=== PATIENT | male | born 1950 | race Caucasian/White ===

== ENCOUNTER 2023-08-08 10:57 | Outpatient (CLI) | payer MEDICARE, SELFPAY ==
[2023-08-08 18:24] LABS: Hematocrit 51.2 % (42.0-52.0); Hemoglobin 16.6 g/dL (14.0-18.0); Mean Corpuscular HGB Conc 32.4 g/dl (32-36); Mean Corpuscular Hemoglobin 31.9 pg (26-34); Mean Corpuscular Volume 98.3 fl (80-100); Mean Platelet Volume 10.8 fl (7.4-10.4); Platelet Count Result 246 k/mm3 (150-375); Red Blood Count 5.21 M/mm3 (4.6-6.20); Red Cell Distribution Width 13.4 % (11.5-14.5); White Blood Count 10.2 K/mm3 (4.5-10.0)
[2023-08-08 18:39] LABS: Hemoglobin A1C 7.1 % (<5.7)
[2023-08-08 18:51] LABS: Alanine Aminotransferase 25 U/L (6-50); Albumin Level 4.9 g/dL (3.5-5.1); Alkaline Phosphatase 69 U/L (38-126); Anion Gap 10 mmol/L (4-12); Aspartate Amino Transferase 85 U/L (17-59); Blood Urea Nitrogen 19 mg/dL (9-20); Calcium 10.1 mg/dL (8.4-10.2); Carbon Dioxide 30 mmol/L (22-30); Chloride 98 mmol/L (98-107); Cholesterol 178 mg/dL (0-200); Estimated Glomerular Filt Rate > 60; Glucose 125 mg/dL (65-110); HDL Direct 47 mg/dL; Potassium 4.3 mmol/L (3.4-5.0); Sodium 138 mmol/L (137-145); Triglycerides 198 mg/dL (<150)
[2023-08-08 19:02] LABS: LDL Cholesterol Direct 92 mg/dL
[2023-08-08 19:21] LABS: Prostate Specific Antigen 1.1 ng/mL (< OR = 4.0)
[2023-08-08 19:37] LABS: Creatinine Urine 55.6 mg/dL
[2023-08-08 19:40] LABS: MALB Creatinine Ratio 41.4 mg/g (0-30)
== END 2023-08-08 10:58 | disposition home or self-care (01) ==
PROVIDERS: PCP Nurse Practitioner Adult Health; Visit Provider Nurse Practitioner Adult Health
DX: E07.9 Disorder of thyroid, unspecified (principal); Z12.5 Encounter for screening for malignant neoplasm of prostate; E11.9 Type 2 diabetes mellitus without complications
CPT/HCPCS: 36415; 80053; 80061; 82043; 82565; 83036; 84153; 84443; 85027; G0103

== ENCOUNTER 2023-09-29 11:23 | Outpatient (CLI) | payer MEDICARE, SELFPAY ==
--- NOTE | ~2023-09-29 | XR_ITS ---
EXAMINATION: XR lumbar spine 2-3V DATE: 09/29/2023 11:37 INDICATION: Low back pain post fall TECHNIQUE: Anteroposterior and lateral views of the lumbar spine, and cone-down lateral view of the l umbosacral junction were obtained. COMPARISON: None. FINDINGS: Line 25 degree lumbar dextroscoliosis. 3 mm anterolisthesis L4 on L5. Vertebral body height s are normal. Moderate disc height loss at T12-L1 through L4-L5, with right-sided predominance at L2- L3 and L3-L4. Mild disc height loss at L5-S1. There are bridging osteophytes at multiple levels consi stent with diffuse idiopathic skeletal hyperostosis (DISH). Posterior endplate osteophytes at and L2- L3 and L3-L4 likely contribute to central canal stenosis. The central canal also appears developmenta lly small at L4 and L5. There is severe left and lower lumbar predominant facet osteoarthritis. Mild osteoarthritis at the bilateral sacroiliac joints. IMPRESSION: 1. 25 degrees lumbar dextroscoliosis with moderate spondylosis. Reviewed, dictated and finalized at location A.
== END 2023-09-29 11:24 | disposition home or self-care (01) ==
PROVIDERS: PCP Nurse Practitioner Adult Health; Visit Provider Nurse Practitioner Adult Health
DX: M54.50 Low back pain, unspecified (principal); W19.XXXA Unspecified fall, initial encounter; M47.896 Other spondylosis, lumbar region
CPT/HCPCS: 72100

== ENCOUNTER 2024-01-05 11:12 | Outpatient (CLI) | payer MEDICARE, SELFPAY ==
--- NOTE | ~2024-01-05 | XR_ITS ---
XR abdomen/kub 1V 01/05/2024 11:27 INDICATION: Constipation TECHNIQUE: KUB COMPARISON: None FINDINGS: Bowel gas pattern is normal. Moderate colonic fecal loading. There is no evidence of free a ir, mass, organomegaly, ascites or obstruction. No abnormal calculi are seen. The bones appear inta ct. There is severe lumbar spondylosis with scoliosis. IMPRESSION: 1: No acute abdominal abnormality identified. Reviewed, dictated and finalized at location B.
== END 2024-01-05 11:13 | disposition home or self-care (01) ==
PROVIDERS: PCP Nurse Practitioner Adult Health; Visit Provider Nurse Practitioner Adult Health
DX: K59.00 Constipation, unspecified (principal)
CPT/HCPCS: 74018

== ENCOUNTER 2024-08-09 09:07 | Outpatient (CLI) | payer MEDICARE, SELFPAY ==
--- OUTSIDE RECORDS SUMMARY | 2024-08-09 09:26 | XMS_ITS | Clinical Summary ---
Author Organization [facility] Address [address] [address] Phone Care Team Providers Care Minibus Driver Name Role Phone Silverio Natalie Iraida FLETCHER Primary Care Provider [phone] Allergies No known active allergies Medications montelukast (SINGULAIR) 10 MG Tablet Take 10 mg by mouth daily. Active losartan (COZAAR) 100 MG Tablet Take 100 mg by mouth daily. Active minocycline (MINOCIN, DYNACIN) 50 MG Capsule Take 50 mg by mouth daily. Active digoxin (LANOXIN) 250 MCG Tablet Take 0.25 mg by mouth daily. Active hydroCHLOROthia zide 25 MG Tablet Take 25 mg by mouth daily. Active levothyroxine (SYNTHROID) 100 MCG Tablet Take 100 mcg by mouth daily. Active tamsulosin (FLOMAX) 0.4 MG Capsule Take 0.4 mg by mouth daily. Active metFORMIN (GLUCOPHAGE) 500 MG Tablet Take 500 mg by mouth daily. Active finasteride (PROSCAR) 5 MG Tablet Take 5 mg by mouth daily. Active rivaroxaban (XARELTO) 20 MG Tablet Take 20 mg by mouth daily. Take with food. Active polyethylene glycol (MiraLax) 17 GM/SCOOP Powder Take 17 g by mouth daily. 17 g = 1 scoop. Dissolve in 4 -8 oz of water or other liquid. 225 g 10/04/2023 Active Family History Medical History Relation Name Comments Cancer Father throat, prostat e Relation Name Status Comments Father Mother Social History Tobacco Use Types Packs/Day Years Used Date Smoking Tobacco: Never Smokeless Tobacco: Never Alcohol Use Standard Drinks/Week Comments Yes 0 (1 standard drink = 0.6 oz pur e alcohol) occassional Sex and Gender Information Value Date Recorded Sex Assigned at Not on file Legal Sex Male 10:27 PM CDT Gender Identity Not on file Sexual Orientation Not on file Last Filed Vital Signs Vital Sign Reading Time Taken Comments Blood Pressure 155/95 10/04/2023 9:27 AM CDT Pulse 92 10/04/2023 9:27 AM CDT Temperature 36.5 C (97.7 F) 10/04/2023 9:27 AM CDT Respiratory Rate 18 10/04/2023 9:27 AM CDT Oxygen Saturation 100% 10/04/2023 9:27 AM CDT Inhaled Oxygen Concentration - - Weight 104.3 kg (230 lb) 10/04/2023 9:27 AM CDT Height 180.3 cm (5' 11 ) 10/04/2023 9:27 AM CDT Body Mass Index 32.08 10/04/2023 9:27 AM CDT Plan of Treatment Health Maintenance Due Date Last Done Comments Hepatitis C Virus (HCV) Screening 1950 TdaP Immunization 1950 Cologuard 2000 Immunochemical Fecal Occult Blood 2000 Pneumococcal Immunization (50+ years) (2 of 2 - PPSV23) 09/28/2019 09/27/2018 Influenza Immunization (#1) 2023 0805/2022, 02/23/2022, 01/27/2021, Additional history exists SARS-COV-2 Immunization ( season) 2023 07/30/2020, 07/04/2020 Colonoscopy 04/24/2024 04/24/2019 Colorectal Cancer Screening 04/24/2024 Respiratory Syncytial Virus (RSV) Immunization (Adult) (1 - 1-dose 75+ series) 2025 04/24/2019 Pneumococcal Immunization Combined Discontinued 09/27/2018 Zoster Immunization Completed 04/07/2020, 0 Hepatitis B Immunization Aged Out No longer eligible based on patient's age to complete this topic Meningococcal Immunization (ACWY) Aged Out No longer eligible based on patient's age to complete this topic Rotavirus Immunization Aged Out No lo nger eligible based on patient's age to complete this topic Insurance MEDICARE C AETNA Care Teams Minibus Driver Relationship Specialty Start Date End Date Natalie Sawyer APRN PCP - General Advanced Practice Nurse 10/04/23
--- OUTSIDE RECORDS SUMMARY | 2024-08-09 09:27 | XMS_ITS | Clinical Summary ---
Author Organization [facility] Address [address] [place] [id number] Care Team Providers Care Sanitation Director Name Role Phone German Shaffer MD Unavailable [phone] Abdon Copeland MD Primary Care Provider [phone] Allergies No known active allergies Medications tamsulosin 0.4 MG Cap Take 1 capsule (0.4 mg total) by mouth daily. Active montelukast 10 MG tablet Take 1 tablet (10 mg total) by mouth nightly at bedtime. Active minocycline 50 MG capsule Take 1 capsule (50 mg total) by mouth daily. Active finasteride 5 MG tablet Take 1 tablet (5 mg total) by mouth daily. Active levothyroxine 100 MCG tablet 1 tablet (100 mcg total) every morning. 10/31/2017 Active icosapent ethyl 1 G capsule Take 1 capsule (1 g total) by mouth 2 (two) times daily. Take with food. Active digoxin (LANOXIN) 0.25 MG tablet TAKE 1 TABLET DAILY 90 tablet 3 11/02/2021 Active JARDIANCE 25 MG tablet Take 1 tablet (25 mg total) by mouth daily. 11/30/2021 Active metFORMIN ER (GLUCOPHAGE-XR) 500 MG 24 hr tablet Take 1 tablet (500 mg total) by mouth 2 (two) times a day. 11/30/2021 Active XARELTO 20 MG Tab tablet TAKE 1 TABLET DAILY WITH SUPPER. TAKE WITH FOOD 90 tablet 3 12/31/2022 Active losartan (COZAAR) 100 MG tablet Take 1 tablet (100 mg total) by mouth daily. 90 tablet 2 12/07/2023 Active hydroCHLOROthia zide (HYDRODIURIL) 25 MG tablet Take 1 tablet (25 mg total) by mouth every morning. 90 tablet 2 12/07/2023 Active Active Problems Problem Noted Date Diagnosed Date LVH (left ventricular hypertrophy) Hypertension Atrial fibrillation (CMS/HCC HHS/HCC) Immunizations Immunization Administration Dates Next Due Fluzone High Dose - >Age 65 (Prefilled Syringe) 01/29/2020,03/15/2019 Pneumococcal (Prevnar 13) 09/27/2018 Shingrix 04/07/2020,01/29/2020 Family History Medical History Relation Comments Diabetes Father Relation Status Comments Father Alive Mother Social History Tobacco Use Types Packs/Day Years Used Date Smoking Tobacco: Never Smokeless Tobacco: Never Alcohol Use Standard Drinks/Week Comments Yes 0 (1 standard drink = 0.6 oz pur e alcohol) social Sex and Gender Information Value Date Recorded Sex Assigned at Not on file Legal Sex Male 9:19 AM CDT Gender Identity Not on file Sexual Orientation Not on file Last Filed Vital Signs Vital Sign Reading Time Taken Comments Blood Pressure 118/76 04/21/2023 9:38 AM GREEN TIRE INSPECTOR Pulse 83 04/21/2023 9:38 AM GREEN TIRE INSPECTOR Temperature - - Respiratory Rate 18 12/04/2018 10:32 AM CDT Oxygen Saturation 98% 04/21/2023 9:38 AM GREEN TIRE INSPECTOR Inhaled Oxygen Concentration - - Weight 112 kg (247 lb) 04/21/2023 9:38 AM GREEN TIRE INSPECTOR Height 180.3 cm (5' 11 ) 04/21/2023 9:38 AM GREEN TIRE INSPECTOR Body Mass Index 34.45 04/21/2023 9:38 AM GREEN TIRE INSPECTOR Plan of Treatment Health Maintenance Due Date Last Done Comments Hepatitis C 1968 DTaP, Tdap and Td Vaccines ( 1 - Tdap) 1969 AAA SCREENING 09/18/2015 Annual Medicare Wellness Visit 09/18/2015 Pneumococcal Vaccine: 50+ Years (2 of 2 - PPSV23) 09/28/2019 09/27/2018 COVID-19 Vaccine (3 - 2023-2 5 season) 2023 07/30/2020, 07/04/2020 RSV Immunization or 60+ Years (1 - 1-dose 75+ series) 2025 Colorectal Cancer Screening Colonoscopy (10 Years) 12/02/2026 Postponed from (Patient will follow up with PCP) Zoster Vaccines Completed 04/07/2020, 01/29/2020 Meningococcal B Vaccine Aged Out No l onger eligible based on patient's age to complete this topic Meningococcal Vaccine Aged Out No juliano mela eligible based on patient's age to complete this topic RSV Immunizations Under 20 Months Aged Out No longer eligible b ased on patient's age to complete this topic Insurance AETNA Care Teams Sanitation Director Relationship Specialty Start Date End Date Abdon Copeland MD [address] [place] [address] PCP - General FAMILY PRACTICE 12/06/16 German Shaffer MD Line [place] Asset Protection Associate CARDIOVASCULAR DISEASE 11/18/16
--- OUTSIDE RECORDS SUMMARY | 2024-08-09 09:27 | XMS_ITS | Encounter Summary ---
Author Organization [facility] Address [address] [place] [id number] Care Team Providers Care Nutrition And Dietetics Instructor Name Role Phone Herlinda Zayas MD Unavailable [phone] German Shaffer MD Unavailable [phone] Non-Staff, Provider Primary Care Provider Abdon Rivera MD Primary Care Provider [phone] Encounter Details Date Type Department Care Team (Late st Contact Info) Description 11/17/[address] [facility] Conversion [address] [place], [place] [id number] , Generic Conversion, Social History Tobacco Use Types Packs/Day Years Used Date Smoking Tobacco: Never Sex and Gender Information Value Date Recorded Sex Assigned at Not on file Legal Sex Male 9:19 AM CDT Gender Identity Not on file Sexual Orientation Not on file documented as of this encounter Plan of Treatment Not on file documented as of this encounter Visit Diagnoses Not on filedocumented in this encounter Care Teams Nutrition And Dietetics Instructor Relationship Specialty Start Date End Date Non-Staff, Provider PCP - General 12/02/16 12/05/16 Abdon Copeland MD [address] [address] PCP - General FAMILY PRACTICE 12/06/16 Herlinda Zayas MD CARDIOVASCULAR DISEASE 11/16/16 11/17/16 German Shaffer MD [place] Manager Production CARDIOVASCULAR DISEASE 11/18/16 documented as of this encounter
--- OUTSIDE RECORDS SUMMARY | 2024-08-09 09:27 | XMS_ITS | CONTINUITY OF CARE DOCUMENT ---
Author Name kade berrybola Address Unknown Organization [facility] Address [address] [place] [address] Phone [phone] Care Team Providers [facility] Orderly Name Role Phone Juan DIAZ, Jose Dorman Unavailable [phone] NALLELY DIAZ, OLIVIA Unavailable NALLELY DIAZ, OLIVIA Unavailable PROBLEMS Condition Status Date Provider Notes HYPERTENSION, ESSENTIAL active Jose Martinez MD ABNORMAL ELECTROCARDIOGRAM- RT STRESS NEG completed - Collin Krueger MD ATRIAL FIBRILLATION active Jose Martinez MD COPD;BY PETROS 09 ,WILL REPEAT completed 20 02/16/12 - Jose Martinez MD Obstructive sleep apnea active Jose Martinez MD OBESITY active Jose Martinez MD LVH active Jsoe Martinez MD Edema active Jose Martinez MD Current long-term use of Amiodarone active Jose Martinez MD Current use of anticoagulants active Jose Martinez MD Hypothyroidism active Jose Martinez MD Dizziness active Jose Martinez MD ENCOUNTERS Date Type Provider Location Encounter Diag nosis - In-person encounter Office Visit Jose Martinez MD [facility] HYPERTENSION, ESSENTIALATRIAL FIBRILLATIONCOPD;BY PETROS 09 ,WILL REPEATObstructive sleep apneaOBESITYLVHCurrent long-term use of AmiodaroneCurrent use of anticoagulantsHypothyroidismDizziness - In-person encounter Office Visit Jose Martinez MD [facility] EdemaCurrent long-term use of Amiodarone - In-person encounter Office Visit Jose Martinez MD [facility] - In-person encounter Office Visit Jose Martinez MD [facility] - In-person encounter Office Visit Jose Martinez MD [facility] - In-person encounter Office Visit Jose Martinez MD [facility] - In-person encounter Office Visit Jose Martinez MD [facility] - In-person encounter Office Visit Jose Martinez MD [facility] - In-person encounter Office Visit Collin Krueger MD [facility] HYPERTENSION, ESSENTIALABNORMAL ELECTROCARDIOGRAM-09/17 RT STRESS NEGATRIAL FIBRILLATIONObstructive sleep apneaOBESITYLVHEdema - In-person encounter Office Visit Jose Martinez MD [facility] - In-person encounter Office Visit Jose Martinez MD [facility] - In-person encounter Office Visit Jose Martinez MD [facility] - In-person encounter Office Visit Jose Martinez MD [facility] - In-person encounter Office Visit Jose Martinez MD [facility] - In-person encounter Office Visit Jose Martinez MD [facility] HYPERTENSION, ESSENTIALABNORMAL ELECTROCARDIOGRAM-09/17 RT STRESS NEGATRIAL FIBRILLATIONCOPD;BY PETROS ,WILL REPEAT VITAL SIGNS Date Observation Value Provider Body Mass Index (Ratio) 37.02 kg/m2 Florian Ricardo blood pressure, resting Yes Jose Martinez MD pulse rate 86 /min Hilaria Martínez oxygen saturation, oximetry 97 % Hilaria Martínez blood pressure, cuff size large Jerzy Martínez weight E&M 273 [lb_av] Hilaria Martínez height E&M 72 [in_i] Hilaria Martínez blood pressure, diastolic 76 mm[Hg] Jerzy Martínez blood pressure, systolic 127 mm[Hg] Ishan Martínez blood pressure, diastolic 80 mm[Hg] Swetha Ponce blood pressure, systolic 110 mm[Hg] Rocío Ponce pulse rate 122 /min Alexis perez oxygen saturation, oximetry 97 % Alexis Ponce respiratory rate E&M 18 /min Justa Ponce Body Mass Index (Ratio) 36.42 kg/m2 MeaganBarbara Ponce weight E&M 268.6 [lb_av] Alexis Igor radha Body Mass Index (Ratio) 37.02 kg/m2 Tammy rangel Kenneth blood pressure, diastolic, left arm 82 mm [Hg] Alysia Cooper blood pressure, systolic, left arm 129 mm [Hg] Alysia Cooper blood pressure, diastolic, right arm 71 m m[Hg] Alysia Cooper blood pressure, systolic, right arm 115 m m[Hg] Alysia Cooper blood pressure, diastolic 71 mm[Hg] Va steve Kenneth blood pressure, systolic 115 mm[Hg] Olga brayan Cooper pulse rate 75 /min Alysia Cooper oxygen saturation, oximetry 96 % Alysia Cooper respiratory rate E&M 18 /min Alysia Cooper weight E&M 273 [lb_av] Alysia Cooper blood pressure, diastolic 68 mm[Hg] Swetha Ponce blood pressure, systolic 106 mm[Hg] Rocío Ponce Body Mass Index (Ratio) 37.62 kg/m2 MeaganBarbara Ponce pulse rate 93 /min Alexis perez oxygen saturation, oximetry 97 % Alexis Ponce respiratory rate E&M 18 /min Justa Ponce weight E&M 277.4 [lb_av] Alexis garcia Body Mass Index (Ratio) 37.43 kg/m2 Stacya flori [facility] blood pressure, diastolic, left arm 84 mm [Hg] Aneatris Brown blood pressure, systolic, left arm 136 mm [Hg] Aneatris Brown blood pressure, diastolic, right arm 95 m m[Hg] Aneatris Brown blood pressure, systolic, right arm 143 m m[Hg] Aneatris [facility] blood pressure, diastolic 95 mm[Hg] An eatris [facility] blood pressure, systolic 143 mm[Hg] Ane atris [facility] pulse rate 85 /min Aneatris [facility] oxygen saturation, oximetry 98 % Aneatris [facility] respiratory rate E&M 17 /min Aneatri s [facility] weight E&M 276 [lb_av] Aneatris Alcides pulse rate 10 67 /min Antonio Garcia RN blood pressure, diastolic, baseline 72 mm [Hg] Antonio Garcia RN blood pressure, systolic, baseline 114 mm [Hg] Antonio Garcia RN height E&M 72 [in_i] Antonio Garcia RN height in centimeters E&M 182.88 cm Saturnino Garcia RN Body Mass Index (Ratio) 38.66 kg/m2 Bustamante i Jose A blood pressure, diastolic 100 mm[Hg] Ke rri Jose A blood pressure, systolic 164 mm[Hg] Julieta Naranjo pulse rate 79 /min Kaylin bell oxygen saturation, oximetry 97 % Kaylin Naranjo respiratory rate E&M 15 /min Kaylin thompson weight E&M 284 [lb_av] Kaylin Hatch lder height E&M 72 [in_i] Kaylin Holden er blood pressure, diastolic, left arm 80 mm [Hg] [facility] blood pressure, systolic, left arm 132 mm [Hg] [facility], [facility], right arm 88 m m[Hg] [facility] blood pressure, systolic, right arm 138 m m[Hg] [facility], diastolic 88 mm[Hg] Fifi seph [place] blood pressure, systolic 138 mm[Hg] [facility] pulse [facility] 72 /min [facility] oxygen saturation, oximetry 97 % [facility] respiratory rate E&M 16 /min [facility] weight E&M 271 [lb_av] [facility] blood pressure, diastolic 99 mm[Hg] Aguilera blood pressure, systolic 153 mm[Hg] Jesu travis Julian pulse rate 73 /min [facility] saturation, oximetry 96 % Jericho Julian respiratory rate E&M 16 /min Jericho Julian weight E&M 271 [lb_av] Jericho Julian blood pressure, diastolic, left arm 83 mm [Hg] Adry Menchaca [place] blood pressure, systolic, left arm 127 mm [Hg] Adry Menchaca [place] blood pressure, diastolic, right arm 89 m m[Hg] Adry Menchaca [place] blood pressure, systolic, right arm 142 m m[Hg] Adry Menchaca MA oxygen saturation, oximetry 96 % Adry Menchaca MA blood pressure, diastolic 89 mm[Hg] Judy Menchaca MA blood pressure, systolic 142 mm[Hg] Vadim Menchaca MA pulse rate 87 /min Adry Menchaca MA respiratory rate E&M 20 /min Adry Menchaca [place] weight E&M 279 [lb_av] Adrycm Menchaca [place] blood pressure, diastolic, left arm 90 mm [Hg] [facility] blood pressure, systolic, left arm 124 mm [Hg] [facility] blood pressure, diastolic, right arm 82 m m[Hg] [facility] blood pressure, systolic, right arm 128 m m[Hg] [facility] blood pressure, diastolic 82 mm[Hg] Fifi seph [place] blood pressure, systolic 128 mm[Hg] Jean Carlos eph [facility] pulse rate 102 /min [facility] oxygen saturation, oximetry 98 % [facility] respiratory rate E&M 16 /min [facility] weight E&M 269 [lb_av] [facility] blood pressure, diastolic, left arm 81 mm [Hg] Myranda York blood pressure, systolic, left arm 115 mm [Hg] Myranda blood pressure, diastolic, right arm 65 m m[Hg] Myranda blood pressure, systolic, right arm 120 m m[Hg] Myranda blood pressure, diastolic 65 mm[Hg] Corbin Gasca blood pressure, systolic 120 mm[Hg] [facility] pulse rate 58 /min Myranda oxygen saturation, oximetry 98 % Myranda respiratory rate E&M 16 /min Myranda Y orirving weight E&M 258 [lb_av] Myranda blood pressure, diastolic, left arm 79 mm [Hg] Myranda blood pressure, systolic, left arm 117 mm [Hg] Myranda blood pressure, diastolic, right arm 82 m m[Hg] Myranda blood pressure, systolic, right arm 128 m m[Hg] Myranda York blood pressure, diastolic 79 mm[Hg] Corbin Gasca blood pressure, systolic 117 mm[Hg] Pat sy York pulse rate 95 /min Myranda York oxygen saturation, oximetry 98 % Myranda York respiratory rate E&M 17 /min Myranda Y maricruz weight E&M 264 [lb_av] Myranda York blood pressure, diastolic, left arm 90 mm [Hg] Adry Menchaca MA blood pressure, systolic, left arm 131 mm [Hg] Adry Menchaca MA blood pressure, diastolic, right arm 99 m m[Hg] Adry Menchaca MA blood pressure, systolic, right arm 147 m m[Hg] Adry Menchaca MA oxygen saturation, oximetry 97 % Adry Menchaca MA blood pressure, diastolic 99 mm[Hg] Judy Menchaca MA blood pressure, systolic 147 mm[Hg] Vadim Menchaca MA pulse rate 96 /min Adry Menchaca MA respiratory rate E&M 18 /min Adry Menchaca MA weight E&M 260 [lb_av] Adry Menchaca MA blood pressure, diastolic, left arm 82 mm [Hg] Adry Menchaca MA blood pressure, systolic, left arm 131 mm [Hg] Adry Menchaca MA blood pressure, diastolic, right arm 73 m m[Hg] Adry Menchaca MA blood pressure, systolic, right arm 117 m m[Hg] Adry Menchaca MA oxygen saturation, oximetry 96 % Adry Menchaca MA blood pressure, diastolic 82 mm[Hg] Judy Menchaca MA blood pressure, systolic 131 mm[Hg] Vadim Menchaca MA pulse rate 68 /min Adry Menchaca MA respiratory rate E&M 18 /min Adry Menchaca MA weight E&M 261 [lb_av] Adry Menchaca MA blood pressure, diastolic, left arm 88 mm [Hg] Kristian Lucas blood pressure, systolic, left arm 113 mm [Hg] [facility] blood pressure, diastolic, right arm 88 m m[Hg] [facility] blood pressure, systolic, right arm 115 m m[Hg] [facility] blood pressure, diastolic 88 mm[Hg] Fifi seph [facility] blood pressure, systolic 115 mm[Hg] Jean Carlos [facility] pulse rate 91 /min [facility] oxygen saturation, oximetry 98 % [facility] respiratory rate E&M 16 /min [facility] weight E&M 260 [lb_av] [facility] ALLERGIES No Known Drug Allergies RESULTS Date Observation Value Provider Reference Range Interpretation Location thyroid stimulating hormone, serum 6.060 ??IU/ML [facility] 0.270 - 4.200 High thyroid stimulating hormone, serum 14.59 u[IU]/mL [facility] 0.270-4.20 High thyroxine, serum, free 0.86 ng/dL [facility] 0.93-1.7 Low albumin/globulin ratio, serum 1.2 ratio [facility] 1.0-2.6 Normal globulin, serum 3.4 [facility] 1.6-4.0 Normal protein, total, serum 7.6 g/dL [facility] 6.6-8.7 Normal bilirubin, serum, direct 0.1 mg/dL [facility] 0.0-0.3 Normal bilirubin, serum, total 0.4 mg/dL [facility] 0-1.2 Normal alanine aminotransferase (SGPT), serum 33 1/L [facility] 0-41 Normal aspartate aminotransferase (SGOT), serum 24 1/L [facility] 0-40 Normal alkaline phosphatase, serum 83 1/L [facility] 40-129 Normal albumin, serum 4.2 g/dL [facility] 3.97-4.94 Normal international normalized ratio (INR) 7.0 [facility] prothrombin time (patient) 69.[address] [facility] magnesium, serum 2.0 mg/dL [facility] prothrombin time (patient) 36.8 s [facility] international normalized ratio (INR) 3.7 [facility] anion gap, serum 9.8 [facility] estimated glomerular filtration rate >60 [facility] calcium, serum 8.9 mg/dL [facility] blood glucose, fasting 119 mg/dL [facility] creatinine, serum 0.94 mg/dL [facility] urea nitrogen, blood 13.0 mg/dL [facility] carbon dioxide, serum, total 29 mmol/L [facility] chloride, serum 103 mmol/L [facility] potassium, serum 3.8 mmol/L [facility] sodium, serum 138 mmol/L [facility] platelet count 222 10*3/uL [facility] red blood cell distribution width 13.7 % [facility] mean corpuscular hemoglobin concentration, RBC 33.4 g/dL [facility] mean corpuscular hemoglobin, RBC 31.6 pg [facility] mean corpuscular volume, RBC 94.7 fL [facility] hematocrit, blood 44.3 % [facility] hemoglobin, blood 14.8 g/dL [facility] erythrocyte (RBC) count 4.68 10*6/mm3 [facility] monocytes as percent of blood leukocytes 12.9 % [facility] lymphocytes as percent of blood leukocytes 21.8 % [facility] leukocyte count, blood 11.9 10*3/mm3 Artie Fuentes coagulation managed by Antonio Gacria RN international normalized ratio (INR) 4.3 Jericho Julian prothrombin time (patient) 43.1 s Denyean Julian coagulation managed by Antonio Garcia RN international normalized ratio (INR) 3.3 Tami O'Molina prothrombin time (patient) 33.1 s Tami O'Molina coagulation managed by Antonio Garcia RN international normalized ratio (INR) 3.6 Tami O'Molina prothrombin time (patient) 36.2 s Tami O'Molina coagulation managed by Antonio Garcia RN international normalized ratio (INR) 3.1 Antonio Garcia RN prothrombin time (patient) 30.5 s Antonio Garcia RN international normalized ratio (INR) 5.0 Pete Culamak prothrombin time (patient) 49.5 s Pete Wesleyamak international normalized ratio (INR) 3.0 Tami O'Molina prothrombin time (patient) 30.0 s Tami O'Molina international normalized ratio (INR) 2.3 Tami O'Molina prothrombin time (patient) 23.2 s Tami O'Molina coagulation managed by Antonio Garcia RN international normalized ratio (INR) 2.8 Tami O'Molina prothrombin time (patient) 28.1 s Tami O'Molina coagulation managed by Antonio Garcia RN international normalized ratio (INR) 2.5 Tami O'Molina prothrombin time (patient) 25.0 s Tami O'Molina coagulation managed by Antonio Garcia RN international normalized ratio (INR) 3.7 Antonio Garcia RN prothrombin time (patient) 36.5 s Antonio Garcia RN coagulation managed by Antonio Garcia RN international normalized ratio (INR) 2.2 Tami O'Molina prothrombin time (patient) 22.1 s Tami O'Molina coagulation managed by Antonio Garcia RN international normalized ratio (INR) 1.8 Tami O'Molina prothrombin time (patient) 17.9 s Tami O'Molina coagulation managed by Antonio Garcia RN international normalized ratio (INR) 2.5 Myranda York prothrombin time (patient) 24.5 s Myranda York coagulation managed by Antonio Garcia RN international normalized ratio (INR) 3.3 Melissa Weir prothrombin time (patient) 32.9 s Melissa Destin international normalized ratio (INR) 1.6 Kristian Manacoadolfo prothrombin time (patient) 15.9 s Kristian Manacoadolfo international normalized ratio (INR) 1.4 Niya Weldon prothrombin time (patient) 14.1 s Niya Weldon international normalized ratio (INR) 1.4 Melissa Destin prothrombin time (patient) 13.7 s Melissa Destin coagulation managed by Deedee Villalobos RN international normalized ratio (INR) 1.5 Niya Weldon prothrombin time (patient) 14.8 s Niya Weldon international normalized ratio (INR) 4.3 Sandra Stout prothrombin time (patient) 43.4 s Sandra Conyers international normalized ratio (INR) 4.8 Kristian Manacop prothrombin time (patient) 48.2 s Kristian Manacop international normalized ratio (INR) 2.7 Adry Menchaca MA prothrombin time (patient) 27.3 s Adry Menchaca MA prostate specific antigen 5.96 ng/mL Kristel [facility] HISTORY OF MEDICATION USE Medication Status Instructions Dates Provider Indications Com ments TAMSULOSIN HCL 0.4 MG ORAL CAPSULE active 1 cap daily Hilaria Martínez LEVITRA 10 MG ORAL TABLET active as needed Hilaria Martínez AMIODARONE HCL 200 MG ORAL TABLET active ONE TAB. DAILY Jose Martinez MD LEVOTHYROXINE SODIUM 25 MCG ORAL TABLET active once daily Alysia Kenneth XARELTO 20 MG ORAL TABLET active One tab. daily with evening meal Jose Martinez MD LISINOPRIL 20 MG ORAL TABLET completed 1 tab by mouth daily(replaces bystolic) - Jose Martinez MD BYSTOLIC 10 MG ORAL TABLET completed ONE TAB. DAILY - Pete Mendezirving VIAGRA 50 MG ORAL TABLET completed one to two tabs as needed - Alexis Ponce COZAAR 100 MG ORAL TABLET active ONE TAB. DAILY Collin Krueger MD ASPIRIN 81 MG ORAL TABLET completed ONE TAB. DAILY - Alexis Ponce AMIODARONE HCL 200 MG ORAL TABLET completed one tab daily - Alexis Ponce COUMADIN 5 MG ORAL TABLET completed Take 1 tab by mouth every other day - Antonio Garcia RN COUMADIN 5 MG ORAL TABLET completed daily - Collin Krueger MD WARFARIN SODIUM 1 MG ORAL TABLET completed 1/2 tab daily w/1/2 tab of your 5mg tab to equal 3mg daily dose - Chelsea Cuenca RN COUMADIN 5 MG ORAL TABLET completed 1/2 tab daily (3mg daily dose) - Chelsea Cuenca RN PROSCAR 5 MG ORAL TABLET active daily Antonio Garcia RN HYDROCHLOROTHIAZIDE 25 MG ORAL TABLET active ONE TAB DAILY Antonio Garcia RN MINOCYCLINE HCL 50 MG ORAL CAPSULE active daily Antonio Garcia RN ASPIRIN 81 MG ORAL TABLET completed - Jose Martinez MD MONTELUKAST SODIUM 10 MG ORAL TABLET active One tablet daily Jose Martinez MD LOTREL CAPSULE completed 10-40 once daily - Collin Krueger MD SOCIAL HISTORY Date Observation Value Provider physical exercise, f requency, days per week no Jose Martinez MD alcohol use, average drinks per day <1 Jose Martinez MD alcohol use yes Jose Martinez MD caffeine use, averag e drinks per day no Jose Martinez MD drug use no Jose Martinez MD passive cigarette sm crystal exposure no Jose Martinez MD smoking status Never smoker Jose Mederos social history reviewed E&M revi ewed - no changes required Jose Martinez MD social history reviewed E&M revi ewed - no changes required Sidney Ricardo social history E&M Lives with frank haines/friends E thnicity: M arital Status: Smoking History: Adolfo chang has never smoked. Sidney Ricardo physical exercise, f requency, days per week no Alexis Ponce alcohol use, average drinks per day <1 Alexis Ponce alcohol use yes Alexis perez caffeine use, averag e drinks per day no AlexisBarbara Ponce drug use no Alexis Oswaldo ana passive cigarette sm crystal exposure no Alexis Ponce smoking status Never smoker Alexis Gama ratliff physical exercise, f requency, days per week no Alysia Cooper alcohol use, average drinks per day <1 Alysia Cooper caffeine use, averag e drinks per day no Alysia Cooper drug use no Alysia Cooper passive cigarette sm crystal exposure no Alysia Cooper smoking status Never smoker Alysia Cooper social history reviewed E&M revi ewed - no changes required Jose Martinez MD physical exercise, f requency, days per week no Alexis Ponce alcohol use, average drinks per day <1 Alexis Ponce caffeine use, averag e drinks per day no Alexis Ponce drug use no Alexis perez passive cigarette sm crystal exposure no Alexis Ponce smoking status Never smoker Alexis Chris physical exercise, f requency, days per week no Jose Martinez MD alcohol use, average drinks per day <1 Jose Martinez MD caffeine use, averag e drinks per day no Jose Martinez MD drug use no Jose Martinez MD passive cigarette sm crystal exposure no Jose Martinez MD smoking status Never smoker Jose Mederos social history reviewed E&M jonnathan rice - no changes required Jose Martinez MD social history reviewed E&M reviewed Antonio Garcia RN alcohol use, average drinks per day <1 Kaylin Naranjo drug use no Kaylin Holden bell passive cigarette sm crystal exposure no Kaylin Jose A smoking status never smoker Kaylin cm social history reviewed E&M reviewed Antonio Garcia RN social history reviewed E&M reviewed Antonio Garcia RN social history reviewed E&M reviewed Collin Krueger MD social history reviewed E&M reviewed Argentina Salgado social history reviewed E&M reviewed Antonio Garcia RN social history reviewed E&M reviewed Antonio Garcia RN social history E&M L maría with family/friends E thnicity: M arital Status: Antonio Garcia RN social history reviewed E&M reviewed Antonio Garcia RN physical exercise, f requency, days per week no [facility] caffeine use, averag e drinks per day no [facility] smoking status Non-smoker [facility] FUNCTIONAL STATUS Date Observation Value Provider HRA, CV Assess/Plan, Angina (inactive) Management Plan continue current therapy Jose Martinez MD HRA, CV Assess/Plan, Angina (inactive) Management Plan continue current therapy Jose Martinez MD MENTAL STATUS Date Observation Value Provider assessment of judgme nt and insight E&M Alert and oriented to time, place and person. Mood and affect are normal. Antonio Garcia RN assessment of judgme nt and insight E&M Alert and oriented to time, place and person. Mood and affect are normal. Antonio Garcia RN assessment of judgme nt and insight E&M Alert and oriented to time, place and person. Mood and affect are normal. Antonio Garcia RN assessment of judgme nt and insight E&M Alert and oriented to time, place and person. Mood and affect are normal. Collin Krueger MD assessment of judgme nt and insight E&M Alert and oriented to time, place and person. Mood and affect are normal. Argentina Salgado assessment of judgme nt and insight E&M Alert and oriented to time, place and person. Mood and affect are normal. Antonio Garcia RN assessment of judgme nt and insight E&M Alert and oriented to time, place and person. Mood and affect are normal. Jose Martinez MD assessment of judgme nt and insight E&M Alert and oriented to time, place and person. Mood and affect are normal. Jose Martinez MD assessment of judgme nt and insight E&M Alert and oriented to time, place and person. Mood and affect are normal. Antonio Garcia RN assessment of judgme nt and insight E&M Alert and oriented to time, place and person. Mood and affect are normal. Antonio Garcia RN FAMILY HISTORY Family Member Condition Father Family History of Di abetes: INSURANCE PROVIDERS Payer name Policy type / Coverage type Lorain red democrat ID [employer] [facility] Other [id number] TREATMENT PLAN Date Name Performer Cardiology:[facility] medication list for this problem includes: Levothyroxine Sodium 25 Mcg Oral Tabs (Levothyroxine sodium) ..... Once daily Jose Martinez MD Cardiology:Continues on Xarelto 20mg daily for Afib. Jose Martinez MD Cardiology:Continues on 200mg of Amiodarone daily. PFT's in November 2015 showed normal pulmonary function. Jose Martinez MD Cardiology Jose Martinez MD Cardiology:BP today: 127/76 P rior BP: 110/80 (10/27/2015) The following medications were removed from the medication list: Lisinopril 20 Mg Tabs (Lisinopril) ..... 1 tab by mouth daily <--- due to dizziness His updated medication list for this problem includes: Hydrochlorothiazide 25 Mg Tabs (Hydrochlorothiazide) ..... One tab daily Cozaar 100 Mg Tabs (Losartan potassium) ..... One tab. daily Jose Martinez MD Cardiology:Has occas ional episodes of dizziness, especially upon standing up. Will stop Lisinopril. Jose Martinez MD Cardiology:[facility] medication list for this problem includes: Amiodarone Hcl 200 Mg Tabs (Amiodarone hcl) ..... One tablet daily He's not interested in a cardioversion at this time. Jose Martinez MD Cardiology:Resuming Amiodarone 200mg daily to recurrence of Afib. Will follow-up in 1 month. Sidney Ricardo Cardiology:It was no maria luisa that the pt is back in AFib by the primary physician. He does not feel palpitaitons but noted some dyspnea on exertion. He's on Xarelto. Will resume Amiodarone 200mg daily. Will follow-up in one month and consider a cardioversion. Sidney Ricardo follow up:refused to use CPAP. We offered him the dental device but he's not interested at this time. Argentina Salgado follow up:EKG today showed NSR. No need for cardioversion at this time. Continue Xarelto, stop aspirin O rders: [phone] HIGH Complex (CPT-95226) [facility] FU: O rders: B TYPE NATRIURETIC PEPTIDE (BNP) (34187) C BC (H/H, RBC, INDICES, WBC, PLT) (1759) U RINALYSIS, COMPLETE (5953) V enous Doppler Bilateral LE - Standing (CPT-51163) Collin Krueger [facility] FU: T he following medications were removed from the medication list: Lotrel Caps (Amlodipine besy-benazepril hcl caps) ..... 10-40 once daily Coumadin 5 Mg Tabs (Warfarin sodium) ..... Daily His updated medication list for this problem includes: Aspirin 81 Mg Tabs (Aspirin) ..... One tab. daily Orders: T HYROID PANEL WITH TSH, 3RD GENERATION (7444) S pirometry (CPT-14950) C OMPREHENSIVE METABOLIC PANEL W/EGFR (71698) X -Ray, Chest, PA & Lateral (CPT-33654) B TYPE NATRIURETIC PEPTIDE (BNP) (84499) C BC (H/H, RBC, INDICES, WBC, PLT) (1759) U RINALYSIS, COMPLETE (5463) V enous Doppler Bilateral LE - Standing (CPT-95501) [facility]ue[facility] FU: T he following medications were removed from the medication list: Lotrel Caps (Amlodipine besy-benazepril hcl caps) ..... 10-40 once daily Coumadin 5 Mg Tabs (Warfarin sodium) ..... Daily His updated medication list for this problem includes: Hydrochlorothiazide 25 Mg Tabs (Hydrochlorothiazide) ..... One tab daily Amiodarone Hcl 200 Mg Tabs (Amiodarone hcl) ..... One tab daily Aspirin 81 Mg Tabs (Aspirin) ..... One tab. daily Cozaar 100 Mg Tabs (Losartan potassium) ..... One tab. daily Orders: C omplete Echo (CPT-09462) T HYROID PANEL WITH TSH, 3RD GENERATION (7444) S pirometry (CPT-03759) C OMPREHENSIVE METABOLIC PANEL W/EGFR (85471) X -Ray, Chest, PA & Lateral (CPT-24576) B TYPE NATRIURETIC PEPTIDE (BNP) (25927) C BC (H/H, RBC, INDICES, WBC, PLT) (1759) U RINALYSIS, COMPLETE (6873) V enous Doppler Bilateral LE - Standing (CPT-02970) Collin Krueger MD [facility]osp FU: O rders: E KG (CPT-49624) H olter Monitor 24 Hr (CPT-55837) C omplete Echo (CPT-78225) T HYROID PANEL WITH TSH, 3RD GENERATION (7444) S pirometry (CPT-23048) C OMPREHENSIVE METABOLIC PANEL W/EGFR (21258) X -Ray, Chest, PA & Lateral (CPT-92915) B TYPE NATRIURETIC PEPTIDE (BNP) (49577) C BC (H/H, RBC, INDICES, WBC, PLT) (1759) U RINALYSIS, COMPLETE (5463) V enous Doppler Bilateral LE - Standing (CPT-23207) Collin Krueger MD [facility]osp FU: O rders: E KG (CPT-57622) H olter Monitor 24 Hr (CPT-44501) C omplete Echo (CPT-61301) T HYROID PANEL WITH TSH, 3RD GENERATION (7444) S pirometry (CPT-16244) C OMPREHENSIVE METABOLIC PANEL W/EGFR (13705) X -Ray, Chest, PA & Lateral (CPT-58094) B TYPE NATRIURETIC PEPTIDE (BNP) (64762) C BC (H/H, RBC, INDICES, WBC, PLT) (1759) U RINALYSIS, COMPLETE (5463) V enous Doppler Bilateral LE - Standing (CPT-82440) Collin Krueger MD [facility]osp FU: T he following medications were removed from the medication list: Coumadin 5 Mg Tabs (Warfarin sodium) ..... Daily His updated medication list for this problem includes: Hydrochlorothiazide 25 Mg Tabs (Hydrochlorothiazide) ..... One tab daily Amiodarone Hcl 200 Mg Tabs (Amiodarone hcl) ..... One tab daily Aspirin 81 Mg Tabs (Aspirin) ..... One tab. daily O rders: T HYROID PANEL WITH TSH, 3RD GENERATION (7444) S pirometry (CPT-23045) C OMPREHENSIVE METABOLIC PANEL W/EGFR (72382) X -Ray, Chest, PA & Lateral (CPT-11800) B TYPE NATRIURETIC PEPTIDE (BNP) (81911) C BC (H/H, RBC, INDICES, WBC, PLT) (1759) U RINALYSIS, COMPLETE (5463) V enous Doppler Bilateral LE - Standing (CPT-27409) Collin Krueger MD [facility]osp FU: T he following medications were removed from the medication list: Lotrel Caps (Amlodipine besy-benazepril hcl caps) ..... 10-40 once daily His updated medication list for this problem includes: Hydrochlorothiazide 25 Mg Tabs (Hydrochlorothiazide) ..... One tab daily Aspirin 81 Mg Tabs (Aspirin) ..... One tab. daily Cozaar 100 Mg Tabs (Losartan potassium) ..... One tab. daily Orders: E KG (CPT-24883) H olter Monitor 24 Hr (CPT-51917) C omplete Echo (CPT-88592) T HYROID PANEL WITH TSH, 3RD GENERATION (8444) S pirometry (CPT-31953) COMPREHENSIVE METABOLIC PANEL W/EGFR (72234) X -Ray, Chest, PA & Lateral (CPT-01193) B TYPE NATRIURETIC PEPTIDE (BNP) (59069) C BC (H/H, RBC, INDICES, WBC, PLT) (1759) U RINALYSIS, COMPLETE (5613) V enous Doppler Bilateral LE - Standing (CPT-63808) Collin Krueger MD f/u from holter: H is updated medication list for this problem includes: Hydrochlorothiazide 25 Mg Tabs (Hydrochlorothiazide) ..... One tab daily Coumadin 5 Mg Tabs (Warfarin sodium) ..... Hold until pt inr done 10/20 Jsoe Martinez MD FU w/ Echo-test resu lts: H is updated medication list for this problem includes: Lotrel Caps (Amlodipine besy-benazepril hcl caps) ..... 10-40 once daily Aspirin 81 Mg Tabs (Aspirin) Hydrochlorothiazide 25 Mg Tabs (Hydrochlorothiazide) ..... One tab daily BP today: 131/82 Prior BP: 115/88 (03/17/2009) S tress Test: There were no exercise induced ST segment or T-wave changes. Test is negative by ECG criteria. [facility] (09/12/2008) N uclear Stress Findings: There were no exercise induced ST segment or T-wave changes. Test is negative by ECG criteria. [facility] (09/12/2008) Jose Martinez MD FU w/ Echo-test resu lts: H is updated medication list for this problem includes: Aspirin 81 Mg Tabs (Aspirin) Hydrochlorothiazide 25 Mg Tabs (Hydrochlorothiazide) ..... One tab daily BP today: 131/82 Prior BP: 115/88 (03/17/2009) S tress Test: There were no exercise induced ST segment or T-wave changes. Test is negative by ECG criteria. [facility] (09/12/2008) N uclear Stress Findings: There were no exercise induced ST segment or T-wave changes. Test is negative by ECG criteria. [facility] (09/12/2008) Jose Martinez MD Irreg Heartrate, HTN : H is updated medication list for this problem includes: Lotrel Caps (Amlodipine besy-benazepril hcl caps) ..... 10-40 once daily Aspirin 81 Mg Tabs (Aspirin) Hydrochlorothiazide 25 Mg Tabs (Hydrochlorothiazide) ..... One tab daily BP today: 115/88 Prior BP: / () Orders: C omplete Echo (CPT-07382) S pirometry (CPT-79496) E KG (CPT-74310) Jose Martinez MD Irreg Heartrate, HTN : H is updated medication list for this problem includes: Lotrel Caps (Amlodipine besy-benazepril hcl caps) ..... 10-40 once daily Aspirin 81 Mg Tabs (Aspirin) Hydrochlorothiazide 25 Mg Tabs (Hydrochlorothiazide) ..... One tab daily BP today: 115/88 Jose Martinez MD Date Name Complete Echo T-4, FREE T3, TOTAL TSH, 3RD GENERATION THYROID PANEL WITH T SH, 3RD GENERATION DLCO - 51195 FRC - 52846 FVC - 75629 DLCO Order - 14735 FRC Order - 19730 FVC Order - 28027 Mobile Cardiac Tele Complete Echo HEPATIC FUNCTION RAYA EL THYROID PANEL WITH T SH, 3RD GENERATION Full PFT Spirometry Venous Doppler Bilat eral LE - Standing URINALYSIS, COMPLETE CBC (H/H, RBC, INDIC ES, WBC, PLT) B TYPE NATRIURETIC P EPTIDE (BNP) X-Ray, Chest, PA & L ateral COMPREHENSIVE METABO LIC PANEL W/EGFR Spirometry THYROID PANEL WITH T SH, 3RD GENERATION Complete Echo Holter Monitor 24 Hr Cardioversion - GC Sleep Study Holter Monitor 24 Hr Stress Test - Adenos ine Spirometry Complete Echo HISTORY OF PROCEDURES Procedure Date Procedure Name Provider Procedure Notes S tatus SNOMED-CT: [id number] Current Medications Documented Jose Martinez MD completed BLOOD COUNT HEMOGLOBIN Jose Martinez MD completed FVC - 05489 Jose Martinez MD completed FRC - 75267 Jose Martinez MD completed DLCO - 86156 Jose Martinez MD complete d EKG Jose Martinez MD completed SNOMED-CT: [id number] [id number] Current Medications Documented Jose Martinez MD completed EKG Jose Martinez MD completed EKG Jose Martinez MD completed EKG Jose Martinez MD completed ePrescribe - Check t his box if eRx is used Collin Krueger MD completed EKG Collin Krueger MD complete d EKG Jose Martinez MD completed EKG Jose Martinez MD completed
--- OUTSIDE RECORDS SUMMARY | 2024-08-09 09:27 | XMS_ITS | Data Portability ---
Author Organization [facility] [employer], Main Office Address [address] [place] [address] Assessment No assessment recorded. Plan of Treatment Reminders Order Date Submit Date Provider Last Modified By Organization Details Last Modified Time Details Appointments None recorded. Lab lipid panel, serum 2022 023 [facility] (Lab), [address] [place], [address], 13:35:50 CMP, serum or plasma 2022 023 [facility] (Lab), [address] [place], [address], 3 13:35:55 PSA, serum or plasma 2022 023 [facility] (Lab), [address] [place], [address], 3 14:09:15 microalbumi n, urine 2022 023 [facility] (Lab), [address] [place], [address], 3 13:44:34 glycohemogl obin, total, blood 2022 023 [facility] (Lab), [address] [place], [address], 3 13:49:34 TSH, serum or plasma 2022 023 [facility] (Lab), [address] [place], [address], 14:02:14 Referral None recorded. Procedures None recorded. Surgeries None recorded. Imaging None recorded. Medication Orders digoxin 250 mcg (0.25 mg) tablet 2022 023 [facility], [address] [place] [address], [address], 15:22:50 metformin ER 500 mg tablet,exte nded release 24 hr 2022 023 [facility], [address] [place] [address], [address], 15:22:48 Jardiance 25 mg tablet 2022 023 [facility], [address] [place] [address], [address], 15:22:50 finasteride 5 mg tablet 2022 023 [facility], [address] [place] [address], [address], 15:22:48 Patient TargetsNo targets recorded. Patient Instructions Encounter Date Encounter Id Patient Instructions Last Modified By Organization Details Last Modified Time 11/11/2022 [id number] dementia rating scale-2* Not available 11/11/2022 15:23:47 alcohol misuse* Not available 11/11/2022 15:24:20 depression screening* Not available 11/11/2022 15:24:26 multi-dimensiona l health assessment questionnaire* Not available 11/11/2022 15:23:28 Personalized [facility] Plan and Screening Recommendations Advance Directives - Do you have one? I recommend consulting with an Appointment Specialist, family member, or friend to assist you. Advance Directives - Do we have your advance directive on file in your health record? Primary Prevention/Interven tion (prevents or decreases the chance of common diseases from occurring) Smoking Risk: Non Smoker Alcohol Misuse Screening: Weight: Appropriate Overwei ght continue your current weight loss efforts try to lose 5% of your body weight Physical activity: Need more exercise/physical activity minimum of 10-20 minutes of activity that causes mild breathlessness/day Nutrition: Good Average Refer to attached handout Heart-Healthy Diet: After Your Visit Fall Risk (screened today): Low Vaccines Pneumococcal: Ordered Recommended today Influenza: Your next one in the fall of this year Chronic Disease Risks Stroke: Low Risk Intermediate Risk Heart Attack: Low risk Intermediate Risk Clogging of the Arteries: Low risk Intermediate Risk Diabetes: Active diagnosis, Continue current treatment plan Secondary Prevention/Interven tion (detects treatable diseases before they may cause symptoms, disability, or ) Prostate Cancer Screening: No digital rectal exam screening necessary Colon Cancer Screening: Colonoscopy Date Screening Last Performed: 04/24/2019 with repeat recommendation for 5 years Eye Disease Screening: Ordered Recommended today Dementia Risk: Low I have no recommendations Depression Screening: Negative [email or web address] Not available 11/10/2022 12:12:00 Reason for Referral None Reported. Results Created Date Observation Date Name Description Value Unit Range Abnormal Flag Note LastModifiedBy Organization Detail LastModifiedTime 10/21/19 21 10/20/2020 hemog lobin A1C, finge rstic k HgbA1C 10.4% Not Available [facility] [address], [place], [address], 10/20/2020 08:42:15 10/21/19 21 10/20/2020 PSA SCREE N PSA medicare screen 0.98 NG/mL 0.00-4 .00 Not Available [facility] (Lab) [address] [place], [address], 10/20/2020 14:30:46 10/21/19 21 10/20/2020 COMPR EHENS DIONNE METAB OLIC PANEL sodium 137 mmol/ L 137-14 5 Not Available [facility] (Lab) [address] [place], [address], 10/20/2020 14:02:28 10/21/19 21 10/20/2020 COMPR EHENS DIONNE METAB OLIC PANEL potassium 4.3 mmol/ L 3.5-5. [address] [facility] (Lab) [address] [place], [address], 10/20/2020 14:02:28 10/21/19 21 10/20/2020 COMPR EHENS DIONNE METAB OLIC PANEL chloride 97 mmol/ L 98-[address] [facility] (Lab) [address] [place], [address], 10/20/2020 14:02:28 10/21/19 21 10/20/2020 COMPR EHENS DIONNE METAB OLIC PANEL carbon dioxide 31 mmol/ L 22-[address] [facility] (Lab) [address] [place], [address], 10/20/2020 14:02:28 10/21/19 21 10/20/2020 COMPR EHENS DIONNE METAB OLIC PANEL agap 13.3 mmol/ L 14-[address] [facility] (Lab) [address] [place], [address], 10/20/2020 14:02:28 10/21/19 21 10/20/2020 COMPR EHENS DIONNE METAB OLIC PANEL glucose 201 mg/dL 70-[address] [facility] (Lab) [address] [place], [address], 10/20/2020 14:02:28 10/21/19 21 10/20/2020 COMPR EHENS DIONNE METAB OLIC PANEL BUN 16 mg/dL 8-[address] [facility] (Lab) [address] [place], [address], 10/20/2020 14:02:28 10/21/19 21 10/20/2020 COMPR EHENS DIONNE METAB OLIC PANEL creatinine 0.69 mg/dL 0.66-[address] [facility] (Lab) [address] [place], [address], 10/20/2020 14:02:28 10/21/1910/20/2020 COMPR EHENS DIONNE METAB OLIC PANEL GFR >60 Refer ence Range : [place] ge GFR Healt hy Adult : >60 mL/mi n/1.7 3 m2 Chron ic Kidne y Disea se: 15-60 mL/mi n/1.7 3 m2 Kidne y Failu re: <15/m L/min /1.73 m2 www.n iddk. nih.g ov MDRD study equat ion hasn' t been valid ated in child bonita <18 yrs of age, pregn ant women , the elder ly >85 yrs of age, or in some racia l or ethni c subgr oups, suc as Hispa nics. Outsi de the valid ated jozef eters , estim ated GFR is less accur ate requi ring clini brandin judgm ent on a case by case basis . Clini brandin inter preta tion for other races and ages must be made by the clini alexander . Futhe rmore , any of th e limit ation s with the use of serum creat inine relat ed to nutri myesha l statu s o r medic ation usage hasn' t accou nted for the MDRD Study equat ion. For perso ns < 18 yrs of age, a pedia tric GFR calcu lator can be locat ed on the [facility] websi te: https ://sonny frye.oniel rg/pr ofess ional s/kdo qi/gf r_cal culat or Not Available [facility] (Lab) [address] [place], [address], 10/20/2020 14:02:28 10/21/1910/20/2020 COMPR EHENS DIONNE METAB OLIC PANEL alkaline phosphatase 67 U/L 38-126 Not Available [facility] (Lab) [address] [place], [address], 10/20/2020 14:02:28 10/21/19 21 10/20/2020 COMPR EHENS DIONNE METAB OLIC PANEL alanine aminotransfe rase 37 U/L 0-50 Not Available [facility] (Lab) [address] [place], [address], 10/20/2020 14:02:28 10/21/19 21 10/20/2020 COMPR EHENS DIONNE METAB OLIC PANEL aspartate aminotransfe rase 38 U/L 15-46 Not Available [facility] (Lab) [address] [place], [address], 10/20/2020 14:02:28 10/21/19 21 10/20/2020 COMPR EHENS DIONNE METAB OLIC PANEL bilirubin, total 0.70 mg/dL 0.20-1 .30 Not Available [facility] (Lab) [address] [place], [address], 10/20/2020 14:02:28 10/21/19 21 10/20/2020 COMPR EHENS DIONNE METAB OLIC PANEL calcium 8.9 mg/dL 8.4-10 .2 Not Available [facility] (Lab) [address] [place], [address], 10/20/2020 14:02:28 10/21/19 21 10/20/2020 COMPR EHENS DIONNE METAB OLIC PANEL total protein 7.7 g/dL 6.3-8. 2 Not Available [facility] (Lab) [address] [place], [address], 10/20/2020 14:02:28 10/21/19 21 10/20/2020 COMPR EHENS DIONNE METAB OLIC PANEL albumin 4.2 g/dL 3.0-4. 4 Not Available [facility] (Lab) [address] [place], [address], 10/20/2020 14:02:28 10/21/19 21 10/20/2020 COMPR EHENS DIONNE METAB OLIC PANEL globulin 3.5 g/dL 2.6-4. 2 Not Available [facility] (Lab) [address] [place], [address], 10/20/2020 14:02:28 10/21/19 21 10/20/2020 COMPR EHENS DIONNE METAB OLIC PANEL A/G ratio 1.2 ratio 1.0-2. [address] [facility] (Lab) [address] [place], [address], 10/20/2020 14:02:28 10/21/19 21 10/20/2020 LIPID PANEL cholesterol 155 mg/dL 140-19 9 NIH DEAN NSUS RECOM MENDA TION FOR LUIS STERO L: ADULT CHILD LOW RISK: <200 <170 BORDE RLINE : <200- 239 ----- HIGH RISK: >240 >200 Not Available [facility] (Lab) [address] [place], [address], 10/20/2020 14:02:22 10/21/1910/20/2020 LIPID PANEL triglyceride s 257 mg/dL 0-150 high NIH DEAN NSUS REPOR T RECOM MENDA TION FOR TRIGL YCERI JOANA: ADULT CHILD LOW RISK: <150 ----- BODER LINE: 150-1 99 ----- HIGH RISK: >200 ----- Not Available [facility] (Lab) [address] [place], [address], 10/20/2020 14:02:22 10/21/19 21 10/20/2020 LIPID PANEL HDL cholesterol 42 mg/dL 40- Not Available [facility] (Lab) [address] [place] [address], [address], 10/20/2020 14:02:22 10/21/1910/20/2020 LIPID PANEL LDL cholesterol, calculated 62 mg/dL 0-130 NIH DEAN NSUS REPOR T RECOM MENDA TIONS FOR LDL: ADULT CHILD LOW RISK <130 <110 (OPTI MAL LDL) <100 ----- SILVERDE RLINE : 130-1 59 ----- HIGH RISK: >160 >130 A TRIGL YCERI DE RESUL T >400 INVAL IDATE S THE CALCU LATIO N FOR LDL FRACT IONAT ION - THE LDL RESUL T WILL NOT BE REPOR TOYA. Not Available [facility] (Lab) [address] [place], [address], 10/20/2020 14:02:22 10/21/19 21 10/20/2020 urina lysis , dipst ick Leukocytes (reference range: negative rachel/ l) Negati ve Not Available [address] , [address], [place], [address], 10/20/2020 08:50:06 10/21/19 21 10/20/2020 urina lysis , dipst ick Nitrite (reference rage: negative mg/dl) negati ve Not Available [address] , [address], [place], [address], 10/20/2020 08:50:06 10/21/1910/20/2020 urina lysis , dipst ick Urobilinogen (reference range: 0.2-1 mg/dl) 0.2 Not Available [address] , [address], [place], [address], 10/20/2020 08:50:06 10/21/19 21 10/20/2020 urina lysis , dipst ick Protein (reference range: negative mg/dl) Negati ve Not Available [address] , [address], [place], [address], 10/20/2020 08:50:06 10/21/19 21 10/20/2020 urina lysis , dipst ick pH (reference range: 5-7) 6.5 Not Available [address] , [address], [place], [address], 10/20/2020 08:50:06 10/21/19 21 10/20/2020 urina lysis , dipst ick Blood (reference range: negative [place]/ l) Negati ve Not Available [address] , [address], [place], [address], 10/20/2020 08:50:06 10/21/19 21 10/20/2020 urina lysis , dipst ick Specific [place] (reference range: 1.005-1.030) 1.025 Not Available [address] , [address], [place], [address], 10/20/2020 08:50:06 10/21/19 21 10/20/2020 urina lysis , dipst ick Ketone (reference range: negative mg/dl) Negati ve Not Available [address] , [address], [place], [address], 10/20/2020 08:50:06 10/21/19 21 10/20/2020 urina lysis , dipst ick Bilirubin (reference range: negative mg/dl) Negati ve Not Available [address] , [address], [place], [address], 10/20/2020 08:50:06 10/21/1910/20/2020 urina lysis , dipst ick Glucose (reference range: negative mg/dl) Negati ve Not Available [address] , [address], [place], [address], 10/20/2020 08:50:06 10/21/19 10/20/2020 urina lysis , dipst ick Appearance Clear Not Available _[address], [place], [address], 10/20/2020 08:50:06 10/21/19 21 10/20/2020 urina lysis , dipst ick Color Yellow Not Available [facility], [place], [address], 10/20/2020 08:50:06 07/29/19 22 07/28/2021 hemog lobin A1C, fatimah rsrose k HgbA1C 6.2% Not Available [address], [place], [address], 07/28/2021 14:22:24 11/17/19 23 11/16/2022 LIPID PANEL cholesterol 178 mg/dL 140-19 9 NIH DEAN NSUS RECOM MENDA TION FOR LUIS STERO L: ADULT CHILD LOW RISK: <200 <170 BORDE RLINE : <200- 239 ----- HIGH RISK: >240 >200 Not Available [facility] (Lab) [address] [place], [address], 11/16/2022 13:35:50 11/17/19 23 11/16/2022 LIPID PANEL triglyceride s 264 mg/dL 0-150 high NIH DEAN NSUS REPOR T RECOM MENDA TION FOR TRIGL YCERI JOANA: ADULT CHILD LOW RISK: <150 ----- BODER LINE: 150-1 99 ----- HIGH RISK: >200 ----- Not Available [facility] (Lab) [address] [place], [address], 11/16/2022 13:35:50 11/17/19 23 11/16/2022 LIPID PANEL HDL cholesterol 37 mg/dL 40- low Not Available [facility] (Lab) [address] [place], [address], 11/16/2022 13:35:50 11/17/19 23 11/16/2022 LIPID PANEL LDL cholesterol, calculated 88 mg/dL 0-130 NIH DEAN NSUS REPOR T RECOM MENDA TIONS FOR LDL: ADULT CHILD LOW RISK <130 <110 (OPTI MAL LDL) <100 ----- BORDE RLINE : 130-1 59 ----- HIGH RISK: >160 >130 A TRIGL YCERI DE RESUL T >400 INVAL IDATE S THE CALCU LATIO N FOR LDL FRACT IONAT ION - THE LDL RESUL T WILL NOT BE REPOR TOYA. Not Available [facility] (Lab) [address] [place], [address], 11/16/2022 13:35:50 11/17/19 23 11/16/2022 COMPR EHENS DIONNE METAB OLIC PANEL sodium 137 mmol/ L 137-14 5 Not Available [facility] (Lab) [address] [place], [address], 11/16/2022 13:35:55 11/17/19 23 11/16/2022 COMPR EHENS DIONNE METAB OLIC PANEL potassium 4.7 mmol/ L 3.5-5. 1 Not Available [facility] (Lab) [address] [place], [address], 11/16/2022 13:35:55 11/17/19 23 11/16/2022 COMPR EHENS DIONNE METAB OLIC PANEL chloride 98 mmol/ L 98-107 Not Available [facility] (Lab) [address] [place], [address], 11/16/2022 13:35:55 11/17/19 23 11/16/2022 COMPR EHENS DIONNE METAB OLIC PANEL carbon dioxide 30 mmol/ L 22-30 Not Available [facility] (Lab) [address] [place], [address], 11/16/2022 13:35:55 11/17/19 23 11/16/2022 COMPR EHENS DIONNE METAB OLIC PANEL anion gap 13.7 mmol/ L 14-22 low Not Available [facility] (Lab) [address] [place], [address], 11/16/2022 13:35:55 11/17/19 23 11/16/2022 COMPR EHENS DIONNE METAB OLIC PANEL glucose 153 mg/dL 70-[address] [facility] (Lab) [address] [place], [address], 11/16/2022 13:35:55 11/17/19 23 11/16/2022 COMPR EHENS DIONNE METAB OLIC PANEL BUN 21 mg/dL 8-19 high Not Available [facility] (Lab) [address] [place], [address], 11/16/2022 13:35:55 11/17/19 23 11/16/2022 COMPR EHENS DIONNE METAB OLIC PANEL creatinine 0.85 mg/dL 0.66-1 .25 Not Available [facility] (Lab) [address] [place], [address], 11/16/2022 13:35:55 11/17/19 23 11/16/2022 COMPR EHENS DIONNE METAB OLIC PANEL GFR >60 Refer ence Range : [place] ge GFR Healt hy Adult : >60 mL/mi n/1.7 3 m2 Chron ic Kidne y Disea se: 15-60 mL/mi n/1.7 3 m2 Kidne y Failu re: <15/m L/min /1.73 m2 www.n iddk. nih.g ov The MDRD study equat ion has not been valid ated in child bonita <18 years of age; pregn ant women ; the elder ly >85 years of age; or in some racia l or ethni c subgr oups, such as Hispa nics. Outsi de the valid ated jozef eters , estim ated GFR is less accur ate, requi ring clini brandin judgm ent on a case- by-ca se basis . Clini brandin inter preta tion for other races and ages must be made by the clini alexander. The MDRD study equat ion has not been valid ated for the evalu ation of serum creat inine relat ed to nutri myesha l statu s or medic ation usage . For perso ns <18 years of age, a pedia tric GFR calcu lator is avail able on the [facility] websi te: https ://ww w.kid uday.o rg/pr ofess ional s/kdo qi/gf r_cal culat or Not Available [facility] (Lab) [address] [place], [address], 11/16/2022 13:35:55 11/17/19 23 11/16/2022 COMPR EHENS DIONNE METAB OLIC PANEL alkaline phosphatase 63 U/L 38-126 Not Available [facility] (Lab) [address] [place], [address], 11/16/2022 13:35:55 11/17/19 23 11/16/2022 COMPR EHENS DIONNE METAB OLIC PANEL alanine aminotransfe rase 31 U/L 0-50 Not Available [facility] (Lab) [address] [place], [address], 11/16/2022 13:35:55 11/17/19 23 11/16/2022 COMPR EHENS DIONNE METAB OLIC PANEL aspartate aminotransfe rase 34 U/L 15-46 Not Available [facility] (Lab) [address] [place], [address], 11/16/2022 13:35:55 11/17/19 23 11/16/2022 COMPR EHENS DIONNE METAB OLIC PANEL bilirubin, total 0.60 mg/dL 0.20-1 .30 Not Available [facility] (Lab) [address] [place], [address], 11/16/2022 13:35:55 11/17/19 23 11/16/2022 COMPR EHENS DIONNE METAB OLIC PANEL calcium 9.0 mg/dL 8.4-10 .2 Not Available [facility] (Lab) [address] [place], [address], 11/16/2022 13:35:55 11/17/19 23 11/16/2022 COMPR EHENS DIONEN METAB OLIC PANEL total protein 7.8 g/dL 6.3-8. [address] [facility] (Lab) [address] [place], [address], 11/16/2022 13:35:55 11/17/19 23 11/16/2022 COMPR EHENS DIONNE METAB OLIC PANEL albumin 4.2 g/dL 3.0-4. 4 Not Available [facility] (Lab) [address] [place], [address], 11/16/2022 13:35:55 11/17/19 23 11/16/2022 COMPR EHENS DIONNE METAB OLIC PANEL globulin 3.6 g/dL 2.6-4. 2 Not Available [facility] (Lab) [address] [place], [address], 11/16/2022 13:35:55 11/17/19 23 11/16/2022 COMPR EHENS DIONNE METAB OLIC PANEL A/G ratio 1.2 ratio 1.0-2. 0 Not Available [facility] (Lab) [address] [place], [address], 11/16/2022 13:35:55 11/17/19 23 11/16/2022 MICRO ALBUM IN RANDO M URINE microalbumin , urine 89.8 mg/L 0.0-16 .6 high Not Available [facility] (Lab) [address] [place], [address], 11/16/2022 13:44:34 11/17/19 23 11/16/2022 HEMOG LOBIN A1C HA1C 7.5 % 4.0-6. 0 high Diabe rick Screevelina stinsong Crite colleen: <5.7% Consi stent with absen ce of diabe rick 5.7-6 .4% Consi stent with incre ased risk for diabe rick (pred iabet es) >OR=6 .5% Consi stent with diabe rick REFER ENCE: Diabe rick Care 2016, 39(Franco ppl.1 ):s13 -s22 [address] [facility] (Lab) [address] [place], [address], 11/16/2022 13:49:34 11/17/19 23 11/16/2022 PSA SCREE N PSA medicare screen 0.77 NG/mL 0.00-4 .00 Not Available [facility] (Lab) [address] [place], [address], 11/16/2022 14:02:05 11/17/19 23 11/16/2022 TSH W/REF OLVIN FT4 TSH with reflex free T4 6.350 uIU/m L 0.465- 4.680 high Not Available [facility] (Lab) [address] [place], [address], 11/16/2022 14:02:14 11/17/19 23 11/16/2022 T4 FREE free T4 1.13 NG/dL 0.78-2 .19 Not Available [facility] (Lab) [address] [place], [address], 11/16/2022 14:52:36 12/06/19 24 12/06/2023 imagi ng/di agnos tic resul t No observ ation record ed. [email or web address] [facility] (Radiology) [address] [place], [address], 12/06/2023 15:25:00 Result Notes None recorded. 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 929854000 Active Not Available [facility] 3 09:48:52 Benign prostatic hyperplasia 744252446 Active Not Available [facility] 3 09:48:52 Knee pain Active Not Available [facility] 3 09:48:52 Type 2 diabetes mellitus without complicatio n 788343956 Active Not Available [facility] 3 09:48:52 Hypertensiv e disorder 22859132 Active Not Available [facility] 3 09:48:52 Impaired fasting glycemia 164716804 Active Not Available [facility] 3 09:48:52 Prostate specific antigen above reference range 511118035 Active Not Available [facility] 3 09:48:52 Osteoarthri tis 721469180 Active Not Available [facility] 3 09:48:52 Dizziness 174725548 Active Not Available [facility] 3 09:48:52 Hypothyroid ism 11083658 Active Not Available [facility] 3 09:48:52 Primary erectile dysfunction 927709202 Active Not Available [facility] 3 09:48:52 Atrial fibrillatio n 81023882 Active chronic Not Available [facility] 3 09:48:52 Hyperlipide mann 26121345 Active Not Available [facility] 3 09:48:52 Essential hypertensio n 23579366 Active Not Available [facility] 3 09:48:52 Problem Notes None recorded. Procedures Surgical History Date Name Laterality Status Provider Name and Address Organization Details Recorded Time 3 Medicare Wellness CPT Code, subsequent completed Loretta Macias RN [place] - S ID [facility] 11/10/2022 12:07:18 Prostate completed Not Available [facility] 08:05:25 ENT Surgery completed Not Available [facility] 06/09/2022 08:05:25 Imaging Results Imaging Date Name Status LastModified by Organ [facility] Details LastModified Time 12/06/2023 imaging/diag nostic result completed [email or web address] [facility] (Radiology) [address] [place], [address], 12/06/2023 15:25:00 Procedure Notes None recorded. Medical Equipment None Reported. Allergies No known drug allergies Medications Name Sig Start Date Stop Date Status Note LastModified by Organization Details LastModified Time amoxicillin 500 mg capsule active Not Available Not Available Not Available metformin 500 mg tablet 2 tabs daily 10/20 completed Not Available Not Available Not Available azithromyci n 250 mg tablet Take 2 TABLET EVERY DAY by oral route for 1 day. Than 1 tablet for 4 days 09/15 completed Not Available Not Available Not Available amiodarone 200 mg tablet 03/15 completed Not Available Not Available Not Available hydrocodone 5 mg-acetamin ophen 325 mg tablet Take 1-2 TABLET EVERY4- 6 HOURS by oral route. 09/27 completed Not Available Not Available Not Available lisinopril 20 mg tablet 05/11 completed Not Available Not Available Not Available Viagra 50 mg tablet Take 1 tablet as needed by oral route as needed. 03/15 completed Not Available Not Available Not Available Pyridium 200 mg tablet Take 1 tablet 3 times a day by oral route. 10/07 completed Not Available Not Available Not Available digoxin 250 mcg (0.25 mg) tablet TAKE 1 TABLET BY MOUTH EVERY DAY active Not Available Not Available No t Available amoxicillin 500 mg tablet 3 tabs prior to procedure and 3 tabs after. active Not Available Not Available No t Available levothyroxi ne 25 mcg tablet one po daily 03/15 completed Not Available Not Available Not Available levothyroxi ne 75 mcg tablet TAKE 1 TABLET EVERY DAY active Not Available Not Available No t Available levothyroxi ne 100 mcg tablet TAKE 1 TABLET DAILY active Not Available Not Available No t Available tamsulosin 0.4 mg capsule Take 1 capsule every day by oral route. active Not Available Not Available No t Available levothyroxi ne 125 mcg tablet TAKE 1 TABLET BY MOUTH EVERY DAY active Not Available Not Available No t Available minocycline 50 mg capsule TAKE 1 CAPSULE DAILY 2023 active Not Available Not Available Not Avai lable Synthroid 50 mcg tablet Take 1 tablet every day by oral route. active Not Available Not Available No t Available montelukast 10 mg tablet TAKE 1 TABLET DAILY active Not Available Not Available No t Available hydrochloro thiazide 25 mg tablet active Not Available Not Available No t Available [place] 10 mg-325 mg tablet Take 1 tablet every 4 hours by oral route. 10/07 completed Not Available Not Available Not Available levofloxaci n 500 mg tablet Take 1 tablet every 24 hours by oral route. 01/25 completed Not Available Not Available Not Available losartan 100 mg tablet active Not Available Not Available Not Available fluticasone propionate 50 mcg/actuati on nasal spray,suspe nsion active Not Available Not Available Not Available metformin ER 500 mg tablet,exte nded release 24 hr TAKE 2 TABLETS TWICE A DAY active Not Available Not Available No t Available finasteride 5 mg tablet TAKE 1 TABLET DAILY active Not Available Not Available No t Available amoxicillin 875 mg-potassiu m clavulanate 125 mg tablet active Not Available Not Available Not Available Asprin Ec Low Dose 81 mg tablet,annetta yed release Take 1 tablet every day by oral route. 2013 active Not Available Not Available Not Avai lable Levitra 10 mg tablet Take 1 tablet every day by oral route as needed. 09/27 completed Not Available Not Available Not Available Bystolic 10 mg tablet active Not Available Not Available No t Available Xarelto 20 mg tablet one po daily active Not Available Not Available No t Available icosapent ethyl 1 gram capsule 2 po bid active Not Available Not Available Not Available Virtussin AC 10 mg-100 mg/5 mL oral liquid active Not Available Not Available Not Available Jardiance 25 mg tablet TAKE 1 TABLET DAILY active Not Available Not Available No t Available Fluzone High-Dose 2019-20 (PF) 180 mcg/0.5 mL intramuscul ar syringe TO BE ADMINISTE RED BY PHARMACIS T FOR IMMUNIZAT ION 10/07 completed Not Available Not Available Not Available Vitals Date Recorded Body mass index (BMI) Body height Oxygen saturation Oxygen saturation in Arterial blood by Pulse oximetry Heart rate Body temperature Body weight Systolic blood pressure Diastolic blood pressure Provider Name and Address Organization Details Last Updated DateTime 1 34.4 kg/m2 180.34 cm 99 % 99 % 85 /min 97.1 [degF] 550942. 32 g 136 mm[Hg] 80 mm[Hg] Not Available [facility] 3 08:08:33 Date Recorded Body mass index (BMI) Body height Oxygen saturation Oxygen saturation in Arterial blood by Pulse oximetry Heart rate Body temperature Body weight Systolic blood pressure Diastolic blood pressure Provider Name and Address Organization Details Last Updated DateTime 1 34.3 kg/m2 180.34 cm 98 % 98 % 91 /min 97.5 [degF] 758059. 72 g 138 mm[Hg] 84 mm[Hg] Not Available [facility] 3 08:08:33 Date Recorded Body mass index (BMI) Body height Oxygen saturation Oxygen saturation in Arterial blood by Pulse oximetry Heart rate Body temperature Body weight Systolic blood pressure Diastolic blood pressure Provider Name and Address Organization Details Last Updated DateTime 2 33.9 kg/m2 180.34 cm 97 % 97 % 98 /min 98.1 [degF] 019202. 95 g 142 mm[Hg] 84 mm[Hg] Not Available [facility] 3 08:08:33 Date Recorded Body mass index (BMI) Body height Oxygen saturation Oxygen saturation in Arterial blood by Pulse oximetry Heart rate Body temperature Body weight Systolic blood pressure Diastolic blood pressure Provider Name and Address Organization Details Last Updated DateTime 2 33.8 kg/m2 180.34 cm 96 % 96 % 103 /min 96.7 [degF] 398216. 35 g 130 mm[Hg] 80 mm[Hg] Not Available [facility] 3 08:08:33 Date Recorded Body weight Body mass index (BMI) Body height Body temperature Heart rate Oxygen saturation Oxygen saturation in Arterial blood by Pulse oximetry Systolic blood pressure Diastolic blood pressure Provider Name and Address Organization Details Last Updated DateTime 3 873635. 35 g 33.8 kg/m2 180.34 cm 98.4 [degF] 91 /min 95 % 95 % 130 mm[Hg] 62 mm[Hg] MECHE Olmos [employer] [facility] 3 15:04:07 Social History Question Answer Notes LastModified by Organizat ion Details LastModified Time Tobacco Smoking Status Never Smoker Not Available [facility] 06/09/2022 08:05:15 What Is Your Level Of Alcohol Consumption? Occasional [id number] Information not available 06/09/2022 What Is Your Level Of Caffeine Consumption? Occasional [id number] Information not available 06/09/2022 How Much Tobacco Do You Chew? None [id number] Information not available 06/09/2022 In The 14 Days Before Symptom Onset, Have You Had Close Contact With A Laboratory-confir med COVID-19 While That Case Was Ill? No [id number] Information not available 06/09/2022 In The 14 Days Before Symptom Onset, Have You Had Close Contact With A Person Who Is Under Investigation For COVID-19 While That Person Was Ill? No [id number] Information not available 06/09/2022 What Type Of Diet Are You Following? REGULAR [id number] Information not available 06/09/2022 Which Illicit Or Recreational Drugs Have You Used? None [id number] Information not available 06/09/2022 Do You Or Have You Ever Used E-cigarettes Or Vape? Never Used Electronic Cigarettes [id number] Information not available 06/09/2022 Are You Passively Exposed To Smoke? No [id number] Information not available 06/09/2022 Do You Or Have You Ever Used Smokeless Tobacco? Never Used Smokeless Tobacco [id number] Information not available 06/09/2022 How Much Tobacco Do You Smoke? No [id number] Information not available 06/09/2022 Sex: Unknown Functional Status Question Answer Note LastModified by Organizat ion Details LastModified Time What is your exercise level? Occasional [id number] Information not available 06/09/2022 Mental Status None recorded. Family History Relationship Description Onset Age of this Age Resolved Age Notes LastModified by Organization Details LastModified Time Father Family history of malignant neoplasm [id number] Not available 06/09/2022 08:05:29 Medical History Condition Response SKIN PROBLEMS Y DIABETES, TYPE Y PULMONARY DISEASE Y PROSTATE Y SLEEP DISORDER Y HYPERTENSION Y HIGH CHOLESTEROL / HYPERLIPIDEMIA Y Immunizations Vaccine Type Date Status Note Provider Elan hoyt and Address Organization Details Recorded Time Influenza, high-dose, trivalent, PF 9 completed Not Available [facility] 11/17/2022 08:35:21 Pneumococcal conjugate PCV 13 9 completed Not Available [facility] 11/17/2022 08:35:21 Influenza, high-dose, trivalent, PF 8 completed Not Available [facility] 11/17/2022 08:35:21 Influenza, high-dose, trivalent, PF 7 completed Not Available [facility] 11/17/2022 08:35:21 Past Encounters Encounter ID Performer Location Encounter Start Date Encounter Closed Date Diagnosis/Indication Diagnosis SNOMED-CT Code Diagnosis ICD10 Code Diagnosis Note [id number] Abdon Vázquez MD [facility] [place] [address] [facility] y , [place] [id number] 10/20/2020 00:00:00 10/20/2020 21:16:34 [id number] Abdon Vázquez MD [facility] [place] [place] [address] [place] [address] [place] [id number] 01/22/2021 00:00:00 01/22/2021 20:21:41 [id number] Abdon Vázquez MD [facility] [place] [address] [place] [address] [place] [id number] 04/28/2021 00:00:00 04/28/2021 15:40:55 [id number] Abdon Vázquez MD [facility] [place] [id number] 07/28/2021 00:00:00 07/28/2021 19:01:15 [id number] Abdon Vázquez MD [facility] [address] [place] [address] [place] [id number] 11/11/2022 14:53:56 11/11/2022 16:39:31 Adult health examination 860649533 Z00.00 Screening for disorder 922171008 Z13.9 Type 2 roberto betes mellitus without complication 569347166 E11.9 Hyperlipidemia 43110584 E78.5 Screening for malignant neoplasm of prostate 082513136 Z12.5 Hypothyroidism 11774073 E03.9 Benign pro static hyperplasia 623792960 N40.0 Renewal of prescription 655872958 Z76.0 Health Concerns Section Related Observation LastModified by Organization Detai ls LastModified Time None Recorded Concern Status LastModified by Organization Details LastModified Time None Recorded Advance Directives Directive None Recorded Payers Encounter Date Sequence Insurance Name Policy Number Policy Barron Covered Member ID Barron Member ID Guarantor Name 11/11/2022 1 [employer] (MEDICARE REPLACEMENT PPO) [id number] 1 Daniel Khoury Pawelevelina [id number] Daniel Hairston 11/11/2022 2 [place] Daniel Khoury Pawelevelina [id number] Daniel Iraida Pawelevelina Notes Date Note Type Note Provider Name and Address Organization Details Recorded Time 11/11/2022 text/html Here for [facility]. No issues. Wearing self out working. Has numbness on feet. Has DM and needs BW. Has chronic AFib.Has had a colonoscopy in last 5 years. Has nocturia gets up 2-3 times. On finasteride and tamsulosin. Abdon Vázquez MD [address] [place] [address], [facility] [address], [place], [address], [place] [facility] [employer] [employer] 11/11/2022 21:43:15
[2024-08-09 20:22] LABS: Alanine Aminotransferase 32 U/L (6-50); Albumin Level 4.2 g/dL (3.5-5.1); Alkaline Phosphatase 81 U/L (38-126); Anion Gap 11 mmol/L (4-12); Aspartate Amino Transferase 39 U/L (17-59); Bilirubin,Total 0.6 mg/dL (0.2-1.3); Blood Urea Nitrogen 19 mg/dL (9-20); Calcium 8.9 mg/dL (8.4-10.2); Carbon Dioxide 29 mmol/L (22-30); Chloride 94 mmol/L (98-107); Cholesterol 203 mg/dL (0-200); Estimated Glomerular Filt Rate > 60; Glucose 376 mg/dL (65-110); HDL Direct 40 mg/dL; Potassium 4.5 mmol/L (3.4-5.0); Sodium 134 mmol/L (137-145); Triglycerides 368 mg/dL (<150)
[2024-08-09 20:33] LABS: LDL Cholesterol Direct 69 mg/dL
[2024-08-09 20:52] LABS: Prostate Specific Antigen 0.8 ng/mL (< OR = 4.0)
[2024-08-09 21:49] LABS: Hemoglobin A1C 13.1 % (<5.7)
[2024-08-09 22:17] LABS: Creatinine Urine 128.8 mg/dL
[2024-08-09 22:48] LABS: MALB Creatinine Ratio 171.7 mg/g (0-30); Microalbumin Urine Random 221.1 mg/L (0-16.7)
== END 2024-08-09 09:08 | disposition home or self-care (01) ==
PROVIDERS: PCP Nurse Practitioner Adult Health; Visit Provider Nurse Practitioner Adult Health
DX: E11.9 Type 2 diabetes mellitus without complications (principal); E07.9 Disorder of thyroid, unspecified; Z12.5 Encounter for screening for malignant neoplasm of prostate
CPT/HCPCS: 36415; 80053; 80061; 82043; 82565; 83036; 84153; 84443; G0103

== ENCOUNTER 2024-10-02 09:26 | Outpatient (CLI) | payer MEDICARE, SELFPAY ==
[2024-10-02 19:56] LABS: Thyroid Stimulating Hormone 0.134 uIU/mL (0.465-4.680)
== END 2024-10-02 09:27 | disposition home or self-care (01) ==
PROVIDERS: PCP Nurse Practitioner Adult Health; Visit Provider Nurse Practitioner Adult Health
DX: E07.9 Disorder of thyroid, unspecified (principal)
CPT/HCPCS: 36415; 84443

== ENCOUNTER 2024-11-27 09:56 | Outpatient (CLI) | payer MEDICARE, SELFPAY ==
--- OUTSIDE RECORDS SUMMARY | 2024-11-27 10:21 | XMS_ITS | Clinical Summary ---
Author Organization [facility] Address [address] [address] Phone Care Team Providers Care Affiliate Marketing Specialist Name Role Phone Silverio Natalie Iraida FLETCHER Primary Care Provider [phone]- [phone] Allergies No known active allergies Medications montelukast [...] 9:27 AM CDT Height 180.3 cm (5' 11) 10/04/2023 9:27 AM CDT Body Mass Index 32.08 10/04/2023 9:27 AM CDT Plan of Treatment Health Maintenance Due Date Last Done Comments Hepatitis C Virus (HCV) Screening 1950 TdaP Immunization 1950 Cologuard 09/18/1995 Immunochemical Fecal Occult Blood 09/18/1995 Pneumococcal Immunization (50+ years) (2 of 2 - PCV20 or PCV21) 09/28/2019 09/27/2018 SARS-COV-2 Immunization (3 - season) 2023 07/30/2020, 07/04/2020 Colonoscopy 04/24/2024 04/24/2019 Colorectal Cancer Screening 04/24/2024 Influenza Immunization (#1) 12/10/202411/10, 02/23/2022, 01/27/2021, Additional history exists Respiratory Syncytial Virus (RSV) Immunization (Adult) (1 - 1-dose 75+ series) 2025 Pneumococcal Immunization Combined Discontinued 09/27/2018 Zoster Immunization Completed 04/07/2020, 0 Hepatitis B Immunization Aged Out No longer eligible based on patient's age to complete this topic Human Papillomavirus (HPV) Immunization Aged Out No longer eligible based on patient's age to complete this topic Meningococcal Immunization (ACWY) Aged Out No longer eligible based on patient's age to complete this topic Rotavirus Immunization Aged Out No lo nger eligible based on patient's age to complete this topic Insurance MEDICARE C [employer] Care Teams Affiliate Marketing Specialist Relationship Specialty Start Date End Date Natalie Sawyer APRN PCP - General Advanced Practice Nurse 10/04/23
[2024-11-27 19:17] LABS: Alanine Aminotransferase 22 U/L (6-50); Albumin Level 4.2 g/dL (3.5-5.1); Alkaline Phosphatase 69 U/L (38-126); Anion Gap 7 mmol/L (4-12); Aspartate Amino Transferase 68 U/L (17-59); Bilirubin,Total 0.7 mg/dL (0.2-1.3); Blood Urea Nitrogen 18 mg/dL (9-20); Calcium 9.3 mg/dL (8.4-10.2); Carbon Dioxide 30 mmol/L (22-30); Chloride 100 mmol/L (98-107); Cholesterol 159 mg/dL (0-200); Estimated Glomerular Filt Rate > 60; Glucose 132 mg/dL (65-110); HDL Direct 29 mg/dL; Potassium 4.7 mmol/L (3.4-5.0); Sodium 137 mmol/L (137-145); Total Protein 8.4 g/dL (6.3-8.2); Triglycerides 186 mg/dL (<150)
[2024-11-27 19:40] LABS: Hemoglobin A1C 7.1 % (<5.7)
[2024-11-27 19:49] LABS: MALB Creatinine Ratio 51.3 mg/g (0-30)
[2024-11-27 19:53] LABS: Prostate Specific Antigen 1.0 ng/mL (< OR = 4.0); Thyroid Stimulating Hormone 6.800 uIU/mL (0.465-4.680)
== END 2024-11-27 09:57 | disposition home or self-care (01) ==
PROVIDERS: PCP Nurse Practitioner Adult Health; Visit Provider Nurse Practitioner Adult Health
DX: Z12.5 Encounter for screening for malignant neoplasm of prostate (principal); E11.9 Type 2 diabetes mellitus without complications; I10 Essential (primary) hypertension; K59.00 Constipation, unspecified
CPT/HCPCS: 36415; 80053; 80061; 82043; 82565; 83036; 84153; 84443; G0103

== ENCOUNTER 2025-01-22 08:32 | Outpatient (CLI) | payer MEDICARE, SELFPAY ==
--- OUTSIDE RECORDS SUMMARY | 2025-01-22 08:57 | XMS_ITS | Clinical Summary ---
Author Organization [facility] Address [address] [address] Phone Care Team Providers Care Production Artist Name Role Phone Silverio Natalie Iraida FLETCHER Primary Care Provider [phone]- [phone] Allergies No known active allergies Medications montelukast [...] 2 - PCV20 or PCV21) 09/28/2019 09/27/2018 Medicare Initial AWV [id number] 04/20/2020 Colonoscopy 04/24/2024 04/24/2019 Colorectal Cancer Screening 04/24/2024 Influenza Immunization (#1) 12/10/202411/10, 02/23/2022, 01/27/2021, Additional history exists SARS-COV-2 Immunization (3 - 2024- season) 2024 07/30/2020, 07/04/2020 Respiratory Syncytial Virus (RSV) Immunization (Adult) (1 [...] topic Insurance MEDICARE C AETNA Care Teams Production Artist Relationship Specialty Start Date End Date Natalie Sawyer APRN PCP - General Advanced Practice Nurse 10/04/23
--- OUTSIDE RECORDS SUMMARY | 2025-01-22 08:57 | XMS_ITS | Clinical Summary ---
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 Name Role Phone LanredarylChaseie HOSEA Primary Care Provider [phone] Allergies No known active allergies Medications digoxin (LANOXIN) 250 mcg (0.25 mg) tablet Take 1 tablet (250 mcg total) by mouth daily Active Jardiance 25 mg tablet Take 1 tablet (25 mg total) by mouth daily Active finasteride (PROSCAR) 5 mg tablet Take 1 tablet (5 mg total) by mouth daily Active hydroCHLOROthia zide (HYDRODIURIL) 25 mg tablet Take 1 tablet (25 mg total) by mouth daily Active icosapent ethyL (VASCEPA) 1 gram capsule Take 1 capsule (1 g total) by mouth daily Active levothyroxine (SYNTHROID) 150 mcg tablet Take 1 tablet (150 mcg total) by mouth daily 11/07/2024 Active losartan (COZAAR) 100 mg tablet Take 1 tablet (100 mg total) by mouth daily Active metFORMIN XR (GLUCOPHAGE XR) 500 mg 24 hr tablet Take 1 tablet (500 mg total) by mouth 2 (two) times a day 11/30/2021 Active montelukast (SINGULAIR) 10 mg tablet Take 1 tablet (10 mg total) by mouth daily Active Xarelto 20 mg tablet Take 1 tablet (20 mg total) by mouth daily with dinner Active Ozempic 0.25 mg or 0.5 mg (2 mg/3 mL) pen injector injection Inject 0.5 mg under the skin once a week 12/21/2024 Active tamsulosin (FLOMAX) 0.4 mg extended release capsule 1 capsule (0.4 mg total) daily Active minocycline (MINOCIN,DYNACI N) 50 mg capsule Take 1 capsule (50 mg total) by mouth 2 (two) times a day Active Active Problems Problem Noted Date Diagnosed Date Chronic anticoagulation 01/04/2025 Hyperlipidemia associated with type 2 diabetes m ellitus 01/04/2025 Hypertension associated with diabetes 01/04/2025 Lipid screening 01/04/2025 Atrial fibrillation 01/04/2025 LVH (left ventricular hypertrophy) 01/04/2025 Encounters Date Type Department Care Team Description 01/17/2025 9:15 AM CDT Ancillary Procedure [facility] Cardiology at [address] [phone] Atrial fibrillation, unspecified type (HCC); Hypertension associated with diabetes (HCC); LVH (left ventricular hypertrophy) 01/11/2025 Orders Only [facility] Cardiology [address] [place] [id number] ProviderLionel MD 01/04/2025 9:30 AM CDT Office Visit [facility] Cardiology at [address] [phone] Baudilio Ace MD Atrial fibrillation, unspecified type (HCC) (Primary Dx); Lipid screening; Hypertension associated with diabetes (HCC); Hyperlipidemia associated with type 2 diabetes mellitus (HCC); Chronic anticoagulation; LVH (left ventricular hypertrophy) 01/03/2025 Telephone [facility] Cardiology at [address] [phone] Otilia Anna MA from Last 3 Months Medical History Medical History Date Comments HTN (hypertension) A-fib (HCC) Social History Tobacco Use Types Packs/Day Years Used Date Smoking Tobacco: Never Sex and Gender Information Value Date Recorded Sex Assigned at Not on file Legal 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 Gender Identity Not on file Sexual Orientation Not on file Obstetrics History Last Filed Vital Signs Vital Sign Reading Time Taken Comments Blood Pressure 126/88 01/04/2025 9:27 AM CDT Pulse 79 01/04/2025 9:27 AM CDT Temperature 37.4 C (99.3 F) 06/15/2020 11:24 AM UNIX SYSTEM ADMINISTRATOR Respiratory Rate 18 01/04/2025 9:27 AM CDT Oxygen Saturation 97% 01/04/2025 9:27 AM CDT Inhaled Oxygen Concentration - - Weight 108.4 kg (239 lb) 01/04/2025 9:27 AM CDT Height 177.8 cm (5' 10) 01/04/2025 9:27 AM CDT Body Mass Index 34.29 01/04/2025 9:27 AM CDT Plan of Treatment Health Maintenance Due Date Last Done Comments Albumin Creatinine Ratio, Urine 1950 Depression Screening 1950 Fall Risk Assessment 1950 Hemoglobin A1C 1950 Hepatitis C Screening 1950 Dilated Eye Exam 1950 Foot Exam 1950 DTaP/Tdap/Td Vaccine (1 - Tdap) 1961 Hepatitis B Screening 1968 Well Visit 65+ 09/18/2015 Pneumococcal vaccine 65+ (2 of 2 - PPSV23, PCV20, or PCV21) 11/22/2018 09/27/2018 Colon Cancer Screening-Colonoscopy 12/09/20202010 eGFR 06/15/2021 06/15/2020 Covid-19 Vaccine (4 - 2023-2 5 season) 2024 01/05/2024, 07/30/2020, 07/04/2020 Lipid Panel 01/04/2026 01/04/2025 Zoster Vaccine Completed 04/07/2020, 01/29/2020 Influenza Vaccine Completed 12/03/2024, , 11/30/2022, Additional history exists Procedures Procedure Name Priority Date/Time Associated Diagnosis Comments TRANSTHORACIC ECHO (TTE) COMPLETE W DOPPLER/CF WO CONTRAST Routine 01/17/2025 9:34 AM CDT Atrial fibrillation, unspecified type (HCC) Hypertension associated with diabetes (HCC) LVH (left ventricular hypertrophy) POCT LIPID PANEL Routine 01/04/2025 9:38 AM CDT Lipid screening ECG 12-LEAD Routine 01/04/2025 9:30 AM CDT Atrial fibrillation, unspecified type (HCC) EGFR STAT 06/15/2020 11:36 AM UNIX SYSTEM ADMINISTRATOR COLONOSCOPY 12/09/2010 12:00 AM CDT from Last 3 Months or Most Recently Relevant to Health Maintenance Results * TRANSTHORACIC ECHO (TTE) COMPLETE W DOPPLER/CF WO CONTRAST (01/17/2025 9:34 AM CDT) Estimated EF 65-70 % CONS SCIMAGE EF Mod BP 66 % CONS SCIMAGE Anatomical Region Laterality Modality Ultrasound 01/17/2025 9:14 AM CDT Narrative 01/17/2025 10:19 AM CDT [facility] [address], [address], [place] [address] P:[phone] P:[phone] Echocardiographic Report Patient Name: LANE HAIRSTON L : 1950 Study Date: 01/17/2025 9:14:30 AM Sex: M Reports Developer: KEEGAN Location: [facility] Ref Provider: BAUDILIO ACE Height(Cm): 178 BSA: 2.32 Weight(Kg): 108.4 Heart Rate: 70 BP: 126 / 88 Quality: Good Order Provider: BAUDILIO ACE PROCEDURES: Echocardiographic Report: Transthoracic echocardiogram with complete 2D, M-Mode, and color Doppler examination. With Strain Analysis. INDICATIONS: Atrial Fibrillation, HTN, Diabetes, LVH. MEASUREMENTS: 2D/MM Value Range Doppler Value Range EF Mod BP 66 % [ 52 - 72 ] ORTIZ Vmax 2.28 cm2 [ 2.00 - 4.00 ] EF Teich MM 66 % [ 52 - 72 ] AV Mean PG 6 mmHg Estimated EF 65-70 % AV Peak John 1.63 m/s [ 1.00 - 1.70 ] LV GLS -13.00 % AV Peak PG 11 mmHg LVIDd 2D 4.76 cm [ 4.20 - 5.80 ] AV VTI 31.05 cm LVIDd MM 5.02 cm [ 4.20 - 5.80 ] LVOT Diam 2.01 cm [ 1.70 - 2.10 ] LVIDs 2D 2.83 cm [ 2.50 - 4.00 ] LVOT Peak John 1.17 m/s [ 0.70 - 1.10 ] LVIDs MM 3.20 cm [ 2.50 - 4.00 ] LVOT VTI 23.35 cm LVPWd 2D 0.92 cm [ 0.60 - 1.00 ] MV E Peak John 0.99 m/s [ 0.60 - 1.30 ] LVPWd MM 0.81 cm [ 0.60 - 1.00 ] MV Decel Time 229 msec [ 104 - 258 ] IVSd 2D 1.20 cm [ 0.60 - 1.00 ] PV Peak John 0.99 m/s [ 0.40 - 0.80 ] IVSd MM 0.87 cm [ 0.60 - 1.00 ] TR Peak John 2.22 m/s [ 1.00 - 2.80 ] LA Dimension MM 4.64 cm [ 3.00 - 4.00 ] TR Peak PG 20 mmHg AoR Diam MM 4.12 cm [ 3.10 - 3.70 ] RVSP 28.00 mmHg [ 10.00 - 36.00 ] LA Volume 111.45 ml [ 18.00 - 58.00 ] RV S` 0.08 m/s LA Volume Index 48 cc/m2 [ 16 - 28 ] Lateral E` 0.09 m/s [ 0.10 - 0.15 ] ACS MM 1.27 cm [ 1.50 - 2.60 ] Septal E` 0.07 m/s [ 0.08 - 0.15 ] RA Volume 48.31 ml E` 0.08 m/s E/E` 12 Tapse 2.34 cm [ 1.71 - 5.00 ] 2D/MM Value Range Doppler Value Range - FINDINGS: Interpretation Site: Exam was interpreted at [facility]. Left Ventricle: Normal left ventricular systolic function. No focal wall motion abnormalities. Normal left ventricular size. Mild concentric left ventricular hypertrophy. Indeterminate diastolic function. Ejection fraction is measured at 66 %. Ejection Fraction is visually estimated to be 65-70 %. Global Longitudinal Strain is -13 %. GLS is abnormal. Right Ventricle: Normal right ventricular size. Normal right ventricular systolic function. Left Atrium: There is severe enlargement of left atrium. Right Atrium: There is mild enlargement of right atrium. Atrial Septum: Normal atrial septum. Mitral Valve: Normal appearance of the mitral valve. Mild mitral valve regurgitation. There is no hemodynamically significant mitral stenosis by Doppler. Aortic Valve: No evidence of hemodynamically significant aortic stenosis by Doppler. Aortic cusps appear mildly calcified. Aortic cusps appear moderately sclerotic. Trileaflet aortic valve. Mild aortic valve regurgitation. Tricuspid Valve: Normal appearance of the tricuspid valve. Normal right ventricular systolic pressure. Estimated peak RVSP is 28 mmHg. Mild tricuspid regurgitation. Pulmonic Valve: Normal appearance of the pulmonic valve. No pulmonic stenosis. Trivial regurgitation in the pulmonic valve. Pericardium: Normal pericardium with no significant pericardial effusion. Aorta: Sinus of Valsalva is dilated. Sinus of Valsalva 4.1 cm. Ascending Aorta 3.7 cm. IVC: Normal size and normal respiratory collapse consistent with normal right atrial pressure (<5 mmHg). CONCLUSIONS: Normal left ventricular systolic function. No focal wall motion abnormalities. Normal left ventricular size. Mild concentric left ventricular hypertrophy. Indeterminate diastolic function. Ejection fraction is measured at 66 %. Ejection Fraction is visually estimated to be 65-70 %. Global Longitudinal Strain is -13 %. GLS is abnormal. There is severe enlargement of left atrium. There is mild enlargement of right atrium. Mild mitral valve regurgitation. Aortic cusps appear mildly calcified. Aortic cusps appear moderately sclerotic. Mild aortic valve regurgitation. Mild tricuspid regurgitation. Sinus of Valsalva is dilated. Sinus of Valsalva 4.1 cm. Ascending Aorta 3.7 cm. Atrial fibrillation. Electronically Signed By: Baudilio Ace MD 01/17/2025 10:18:17 AM CDT Procedure Note Baudilio Ace MD - 01/17/2025 [facility] [address], [address], [place] [address] P:[phone] P:[phone] Echocardiographic Report Patient Name: LANE HAIRSTON L : 1950 Study Date: 01/17/2025 9:14:30 AM Sex: M Reports Developer: KEEGAN Location: [facility] Ref Provider: BAUDILIO ACE Height(Cm): 178 BSA: 2.32 Weight(Kg): 108.4 Heart Rate: 70 BP: 126 / 88 Quality: Good Order Provider: BAUDILIO ACE PROCEDURES: Echocardiographic Report: Transthoracic echocardiogram with complete 2D, M-Mode, and color Dopplerexamination. With Strain Analysis. INDICATIONS: Atrial Fibrillation, HTN, Diabetes, LVH. MEASUREMENTS: 2D/MM Value Range DopplerValue Range EF Mod BP 66 % [ 52 - 72 ] ORTIZ Vmax 2.28cm2 [ 2.00 - 4.00 ] EF Teich MM 66 % [ 52 - 72 ] AV Mean PG 6mmHg Estimated EF 65-70 % AV Peak John 1.63m/s [ 1.00 - 1.70 ] LV GLS -13.00 % AV Peak PG 11mmHg LVIDd 2D 4.76 cm [ 4.20 - 5.80 ] AV VTI31.05 cm LVIDd MM 5.02 cm [ 4.20 - 5.80 ] LVOT Diam 2.01cm [ 1.70 - 2.10 ] LVIDs 2D 2.83 cm [ 2.50 - 4.00 ] LVOT Peak John 1.17m/s [ 0.70 - 1.10 ] LVIDs MM 3.20 cm [ 2.50 - 4.00 ] LVOT VTI23.35 cm LVPWd 2D 0.92 cm [ 0.60 - 1.00 ] MV E Peak John 0.99m/s [ 0.60 - 1.30 ] LVPWd MM 0.81 cm [ 0.60 - 1.00 ] MV Decel Time 229msec [ 104 - 258 ] IVSd 2D 1.20 cm [ 0.60 - 1.00 ] PV Peak John 0.99m/s [ 0.40 - 0.80 ] IVSd MM 0.87 cm [ 0.60 - 1.00 ] TR Peak John 2.22m/s [ 1.00 - 2.80 ] LA Dimension MM 4.64 cm [ 3.00 - 4.00 ] TR Peak PG 20mmHg AoR Diam MM 4.12 cm [ 3.10 - 3.70 ] RVSP28.00 mmHg [ 10.00 - 36.00 ] LA Volume 111.45 ml [ 18.00 - 58.00 ] RV S` 0.08m/s LA Volume Index 48 cc/m2 [ 16 - 28 ] Lateral E` 0.09m/s [ 0.10 - 0.15 ] ACS MM 1.27 cm [ 1.50 - 2.60 ] Septal E` 0.07m/s [ 0.08 - 0.15 ] RA Volume 48.31 ml E` 0.08m/s E/E` 12 Tapse 2.34 cm [ 1.71 - 5.00 ] 2D/MM Value Range DopplerValue Range - FINDINGS: Interpretation Site: Exam was interpreted at [facility]. Left Ventricle: Normal left ventricular systolic function. No focal wall motionabnormalities. Normal left ventricular size. Mild concentric left ventricular hypertrophy.Indeterminate diastolic function. Ejection fraction is measured at 66 %. EjectionFraction is visually estimated to be 65-70 %. Global Longitudinal Strain is -13 %. GLS isabnormal. Right Ventricle: Normal right ventricular size. Normal right ventricular systolicfunction. Left Atrium: There is severe enlargement of left atrium. Right Atrium: There is mild enlargement of right atrium. Atrial Septum: Normal atrial septum. Mitral Valve: Normal appearance of the mitral valve. Mild mitral valve regurgitation.There is no hemodynamically significant mitral stenosis by Doppler. Aortic Valve: No evidence of hemodynamically significant aortic stenosis by Doppler.Aortic cusps appear mildly calcified. Aortic cusps appear moderately sclerotic.Trileaflet aortic valve. Mild aortic valve regurgitation. Tricuspid Valve: Normal appearance of the tricuspid valve. Normal right ventricularsystolic pressure. Estimated peak RVSP is 28 mmHg. Mild tricuspid regurgitation. Pulmonic Valve: Normal appearance of the pulmonic valve. No pulmonic stenosis. Trivialregurgitation in the pulmonic valve. Pericardium: Normal pericardium with no significant pericardial effusion. Aorta: Sinus of Valsalva is dilated. Sinus of Valsalva 4.1 cm. Ascending Aorta3.7 cm. IVC: Normal size and normal respiratory collapse consistent with normal rightatrial pressure (<5 mmHg). CONCLUSIONS: Normal left ventricular systolic function. No focal wall motionabnormalities. Normal left ventricular size. Mild concentric left ventricular hypertrophy.Indeterminate diastolic function. Ejection fraction is measured at 66 %. EjectionFraction is visually estimated to be 65-70 %. Global Longitudinal Strain is -13 %. GLS isabnormal. There is severe enlargement of left atrium. There is mild enlargement of right atrium. Mild mitral valve regurgitation. Aortic cusps appear mildly calcified. Aortic cusps appear moderatelysclerotic. Mild aortic valve regurgitation. Mild tricuspid regurgitation. Sinus of Valsalva is dilated. Sinus of Valsalva 4.1 cm. Ascending Aorta3.7 cm. Atrial fibrillation. Electronically Signed By: Baudilio Ace MD 01/17/2025 10:18:17 AM CDT Baudilio Ace MD CV ECHO PROCEDURES Final Result * (ABNORMAL) POCT lipid panel (01/04/2025 9:38 AM CDT) Cholesterol, POC 121 <200 MG/DL HDL, POC 14(A) >=40 mg/dL Triglycerides, POC 275(A) <=149 mg/dL LDL Cholesterol POC 52 <=129 mg/dL Cholesterol Total, POC 121 30 - 199 mg/dL Capillary blood 01/04/2025 9 :38 AM CDT us Baudilio Ace MD POINT OF CARE TEST ORDERA BLES Final Result * ECG 12 lead (01/04/2025 9:30 AM CDT) Baudilio Ace MD ECG ORDERABLES Edited Re sult - Final * eGFR (06/15/2020 11:36 AM UNIX SYSTEM ADMINISTRATOR) eGFR 63 mL/min/1.7 3 m2 [facility] LERMA ([place]) Comment: Interpretive Data Reference Interval Normal >/= 90 mL/min/1.73m2 Mildly decreased* 60 - 89 mL/min/1.73m2 Mildly to moderately decreased 45 - 59 mL/min/1.73m2 Moderately to severely decreased 30 - 44 mL/min/1.73m2 Severely decreased 15 - 29 mL/min/1.73m2 Kidney Failure < 15 mL/min/1.73m2 *Relative to young adult level Estimated glomerular filtration rate is determined by the CKD-EPI equation recommended by the National Kidney Foundation (KDIGO 2012 Clinical Practice Guideline for the Evaluation and Management of Chronic Kidney Disease. Kidney Intnl Suppl Apr 2012;3:1). The CKD-EPI equation should not be used for patients with unstable renal function and has not been validated in children and those over 70. Current interpretive data was last reviewed 2020 Blood specimen (specimen) 06/15/2020 11:36 AM UNIX SYSTEM ADMINISTRATOR 06/15/2020 11:41 AM UNIX SYSTEM ADMINISTRATOR us Sandra Bacon NP LAB BLOOD ORDERABLES Final R esult MONIKA FLROENTIN ([place]) [facility] [place] [address] * COLONOSCOPY (12/09/2010 12:00 AM CDT) Anatomical Region Laterality Modality Other Narrative 12/09/2010 12:00 AM CDT Ordered by an unspecified provider. Procedure Note ProviderLionel MD - 12/09/2010 12:00 AM CDT PROCEDURE REPORT Patient: LANE HAIRSTON Account: [id number] Room No: : 1950 Patient Type: OPA Attend.: Dalton Messina M.D. Admit Date: 12/09/2010 Dict.: Dalton Messina M.D. Disch. Date: NAME OF PROCEDURE: Colonoscopy. DATE OF PROCEDURE: 12/09/2010 REFERRING PHYSICIAN: Dr. Copeland. PREVIOUS PROCEDURE: Colonoscopy with polyps removed. X-RAYS: None. HISTORY AND PHYSICAL EXAM: The patient is a 60-year-old, white malereferred back for screening colonoscopy. He does have a history of polyps removedin the distant past. He denies any other specific complaints. There is no family history. PHYSICAL EXAMINATION: Physical examination today is that of awell-developed, well-nourished white male in no acute distress. He is nonicteric.Lungs: His lungs are clear. Heart: His heart was regular. Gastrointestinal:Soft, supple. Extremities: Showed no calf pain, cords or edema. PREPROCEDURE DIAGNOSIS 1. Screening colonoscopy in a 60-year-old male. 2. History of colonic polyps. PHYSICIAN: Dr. Messina. INSTRUMENT USED: Motista video endoscope. MEDICATIONS: Per anesthesia. FINDINGS: The colonoscope was introduced and passed to the cecum. The patient tolerated the procedure well. There were no complications. On withdrawal of the colonoscope, the mucosa appeared normal with normal vascular pattern. No polyps, no masses were noted in the cecum, rightor transverse colons. In the left colon, several polyps were noted. Atleast two were picked up, hot biopsied and destroyed. The remainder weresimply cauterized and destroyed. Please note, most of these were small, minute,and hyperplastic in nature. The patient did have some scattereddiverticulosis. No diverticulitis. The remainder of the left rectosigmoid and rectumwere normal. Retroflex view of the internal anal area showed small tomoderate internal hemorrhoidal tissue. Perianal exam showed no perianal disease,no rectal masses. The prostate appeared to be normal for age. COMPLICATIONS: None. POSTPROCEDURE DIAGNOSES 1. Several small polyps left colon, status post hot biopsy (two) orcautery and destruction. 2. Otherwise, largely normal colonoscopy to cecum and normal screening colonoscopy. 3. Withdrawal time of 12 minutes and 12 seconds. POSTPROCEDURE ORDERS 1. Post sedation instructions. 2. High fiber diet. 3. Check pathology. 4. Repeat colon in five years 5. Follow up with Dr. Copeland. Dalton Messina M.D. MECHE/amando TD: 12/10/2010 02:13 CC: Dr. Copeland. PROCEDURE REPORT Authenticated by Dalton Messina MD On 12/15/2010 08:41:01 PM us Historical Provider ENDOSCOPY PROCEDURES Rocío l Result from Last 3 Months or Most Recently Relevant to Health Maintenance Insurance MEDICARE MEDICARE Care Teams Baby Formula Worker Relationship Specialty Start Date End Date Natalie Sawyer NP [address] [address] [place] [address] PCP - General Nurse Practitioner 01/04/25
[2025-01-22 19:38] LABS: Thyroid Stimulating Hormone 7.850 uIU/mL (0.465-4.680)
== END 2025-01-22 08:33 | disposition home or self-care (01) ==
LOC: ANHBWCLAB 08:34
PROVIDERS: PCP Nurse Practitioner Adult Health; Visit Provider Nurse Practitioner Adult Health
DX: E07.9 Disorder of thyroid, unspecified (principal)
CPT/HCPCS: 36415; 84443

== ENCOUNTER 2025-03-05 10:52 | Outpatient (CLI) | payer MEDICARE, SELFPAY ==
[2025-03-05 19:47] LABS: Hemoglobin A1C 6.8 % (<5.7)
[2025-03-05 19:50] LABS: Alanine Aminotransferase 25 U/L (6-50); Albumin Level 4.5 g/dL (3.5-5.1); Alkaline Phosphatase 78 U/L (38-126); Anion Gap 11 mmol/L (4-12); Aspartate Amino Transferase 61 U/L (17-59); Bilirubin,Total 0.6 mg/dL (0.2-1.3); Blood Urea Nitrogen 23 mg/dL (9-20); Calcium 9.3 mg/dL (8.4-10.2); Carbon Dioxide 32 mmol/L (22-30); Chloride 98 mmol/L (98-107); Cholesterol 163 mg/dL (0-200); Estimated Glomerular Filt Rate > 60; Glucose 132 mg/dL (65-110); HDL Direct 27 mg/dL; Potassium 4.3 mmol/L (3.4-5.0); Sodium 141 mmol/L (137-145); Total Protein 8.9 g/dL (6.3-8.2); Triglycerides 138 mg/dL (<150)
[2025-03-05 20:25] LABS: Prostate Specific Antigen 0.8 ng/mL (< OR = 4.0); Thyroid Stimulating Hormone 5.590 uIU/mL (0.465-4.680)
[2025-03-05 20:35] LABS: MALB Creatinine Ratio 36.8 mg/g (0-30)
== END 2025-03-05 10:53 | disposition home or self-care (01) ==
LOC: ANHBWCLAB 10:53
PROVIDERS: PCP Nurse Practitioner Adult Health; Visit Provider Nurse Practitioner Adult Health
DX: Z12.5 Encounter for screening for malignant neoplasm of prostate (principal); I10 Essential (primary) hypertension; E11.9 Type 2 diabetes mellitus without complications; E07.9 Disorder of thyroid, unspecified
CPT/HCPCS: 36415; 80053; 80061; 82043; 82565; 83036; 84153; 84443; G0103